=== PATIENT | female | born 1935 | race Caucasian/White ===

== ENCOUNTER 2018-11-11 11:14 | Inpatient (IN) | payer MEDICARE, OTHER ==
[~2018-11-11] VITALS: Ht 182.9 cm; Wt 59.1 kg
[2018-11-11] MEDS ORDERED: Estradiol1 MG PO (11:53)
[2018-11-11] MEDS ORDERED: CARV6.25 PO (11:53)
[2018-11-11] MEDS ORDERED: FURO20 PO (11:54)
[2018-11-11] MEDS ORDERED: Aspirin EC81 MG PO (11:54)
[2018-11-11 12:21] LABS: BASOPHILS ABSOLUTE AUTO 0.04 K/mm3 (0.00-0.23); BASOPHILS PERCENT AUTO 1 % (0-2); EOSINOPHILS ABSOLUTE AUTO 0.12 K/mm3 (0.00-0.68); EOSINOPHILS PERCENT AUTO 2 % (0-6); Hematocrit 41.4 % (33.0-51.0); Hemoglobin 12.9 g/dL (11.5-16.0); IMMATURE GRAN ABSOLUTE AUTO 0.03 K/mm3 (0.00-0.10); IMMATURE GRAN PERCENT AUTO 0 % (0-1); LYMPHOCYTES ABSOLUTE AUTO 2.01 K/mm3 (0.84-5.20); LYMPHOCYTES PERCENT AUTO 27 % (21-46); MONOCYTES ABSOLUTE AUTO 0.53 K/mm3 (0.16-1.47); MONOCYTES PERCENT AUTO 7 % (4-13); Mean Corpuscular HGB 33.2 pg (26.0-34.0); Mean Corpuscular HGB Conc 31.2 g/dL (31.5-36.5); Mean Corpuscular Volume 107 fL (80-100); Mean Platelet Volume 10.5 fL (9.1-12.4); NEUTROPHILS ABSOLUTE AUTO 4.73 K/mm3 (1.96-9.15); NEUTROPHILS PERCENT AUTO 64 % (41-73); Platelet Count 167 K/mm3 (150-400); RDW Coefficient Variation 13.2 % (11.7-14.2); RDW Standard Deviation 51.7 fL (35.1-46.3); Red Blood Cell Count 3.88 M/mm3 (3.80-5.20); White Blood Cell Count 7.46 K/mm3 (4.00-11.30)
[2018-11-11 12:36] LABS: International Normalized Ratio 0.96; Prothrombin Time Results 10.2 Sec (9.7-11.5)
[2018-11-11 12:46] LABS: Albumin, Blood 3.8 g/dL (3.4-5.0); Albumin/Globulin Ratio 1.1 (0.8-1.8); Bilirubin, Total 0.9 mg/dL (0.1-1.0); Bun/Creatinine Ratio 23.9 (12.0-20.0); Calcium, Blood 8.9 mg/dL (8.5-10.1); Creatinine, Blood 1.17 mg/dL (0.40-1.00); Globulin, Blood 3.4 g/dL (2.2-4.0); Potassium, Blood 4.2 mmol/L (3.5-5.5); Total Protein, Blood 7.2 g/dL (6.4-8.2); Troponin I 0.069 ng/mL (0.000-0.040)
--- NOTE | 2018-11-11 21:42 | NUR ---
REPORT RECEIVED FROM EARNESTINE MURRIETA
--- NOTE | 2018-11-12 01:16 | NUR ---
ARRIVAL TO ICU PT ARRIVED TO ICU 1 APPROX 2146. STAND AND TRANSFERED TO BED WITHOUT DIFFICULTY. PT DENIES SHORTNESS OF BREATH, CHEST PAIN/DISCOMFORT. PT STATES, "I FEEL MUCH BETTER." HEPARIN GTT, DILTIAZEM AND IV FLUIDS + ADDITIVES INFUSING. PT REMAINS IN AFIB, RATE 70'S-80'S. BP STABLE. PT AFEBRILE. O2 SAT IN 90'S ON ROOM AIR. SEE VITALS FLOWSHEET. SHE SHIFT ASSESSMENT. SINCE ARRIVAL, PT HAS CALLED APPROPRIATELY FOR NEEDS. SETUP/STANDBY ASSIST FOR ADL'S.
[2018-11-12 05:52] LABS: Alanine Aminotransfer (ALT/SGP 90 U/L (12-78); Albumin, Blood 3.4 g/dL (3.4-5.0); Albumin/Globulin Ratio 1.1 (0.8-1.8); Alk Phos 84 U/L (50-136); Anion Gap 8 mmol/L (6-16); Aspartate Aminotrans (AST/SGOT 61 U/L (12-37); Blood Urea Nitrogen 26 mg/dL (8-24); Bun/Creatinine Ratio 29.7 (12.0-20.0); CO2, Blood 23 mmol/L (21-32); Calcium, Blood 8.4 mg/dL (8.5-10.1); Chloride, Blood 110 mmol/L (98-108); Creatinine, Blood 0.87 mg/dL (0.40-1.00); Globulin, Blood 3.2 g/dL (2.2-4.0); Glomerular Filtration Rate >60 (60-); Glucose, Blood 105 mg/dL (70-99); Magnesium, Blood 2.6 mg/dL (1.6-2.4); Potassium, Blood 3.8 mmol/L (3.5-5.5); Sodium, Blood 141 mmol/L (136-145); Total Protein, Blood 6.6 g/dL (6.4-8.2); Troponin I 0.077 ng/mL (0.000-0.040)
[2018-11-12 05:55] LABS: BASOPHILS ABSOLUTE AUTO 0.05 K/mm3 (0.00-0.23); BASOPHILS PERCENT AUTO 1 % (0-2); EOSINOPHILS ABSOLUTE AUTO 0.22 K/mm3 (0.00-0.68); EOSINOPHILS PERCENT AUTO 3 % (0-6); Hematocrit 39.6 % (33.0-51.0); Hemoglobin 12.3 g/dL (11.5-16.0); IMMATURE GRAN ABSOLUTE AUTO 0.03 K/mm3 (0.00-0.10); IMMATURE GRAN PERCENT AUTO 0 % (0-1); LYMPHOCYTES PERCENT AUTO 30 % (21-46); MONOCYTES ABSOLUTE AUTO 0.39 K/mm3 (0.16-1.47); MONOCYTES PERCENT AUTO 5 % (4-13); Mean Corpuscular HGB 33.2 pg (26.0-34.0); Mean Corpuscular HGB Conc 31.1 g/dL (31.5-36.5); Mean Corpuscular Volume 107 fL (80-100); Mean Platelet Volume 11.1 fL (9.1-12.4); NEUTROPHILS PERCENT AUTO 61 % (41-73); Platelet Count 110 K/mm3 (150-400); White Blood Cell Count 7.69 K/mm3 (4.00-11.30)
--- NOTE | 2018-11-12 08:10 | NUR ---
PT. ARRIVED VIA BED FROM [facility]ART CENTER AWAKE , ALERT ORIENTED. VSS. MONITOR NSR WITH HR 80-90'S. RT. RADIAL AND RT. GROIN SITE CLEAR.
--- NOTE | 2018-11-12 09:35 | NUR ---
ASSUMED CARE ASSUMED CARE OF PT APPROX. 0700. PT A&O X4. ASSESSMENT COMPLETED. VITAL SIGNS STABLE. HEART RHYTHM A. FIB WITH HEART RATE RANGING FROM 80'S-100. PT CURRENTLY HAS CARDIZEM AND HEPARIN RUNNING. PT REPORTS SOME DISCOMFORT IN NECK FROM HOSPITAL BED BUT REPORT THIS TO BE TOLERABLE AT THIS TIME. BED IN LOW PSOITION, CALL LIGHT IN REACH AND PT DENIES ANY NEEDS AT THIS TIME.
--- NOTE | 2018-11-12 13:05 | NUR ---
Echocardiogram completed.
--- NOTE | 2018-11-12 17:53 | NUR ---
Per admit trigger, I met with Mrs. Muñoz to offer prayer and spiritual encouragement. she is very pleasant and welcoming of companionship and conversation. she appears to be mildly forgetful and tends to talk in circles--often repeating herself. she spoke at length about her fears for the world and "the End Times that are happening now." She professes a life-long shari and strong prayer life. Mrs. Muñoz was appreciaitve of being heard and affirmed. We prayed together for her procedure in the morning. She is well cared-for and supported by her , Mahesh and dtr, Aidee. Interestingly, she tells me that she is worried about her 's increasing fraility and tendancy to get "turned around" when driving. They live in [facility], which [place] from [employer]. Regardless, we had an easy rapport and she will benefit from continued spiritual support. Insurance Claims Analyst services will remain available.
--- NOTE | 2018-11-12 17:55 | NUR ---
SHIFT SUMMARY PT PLEASANT, COOPERATIVE AND USES CALL LIGHT APPROPRIATELY. PT REMAINS A&O X4. ALTHOUGH STATED BY PT, HAS A BAD MEMORY AND MAY ASK QUESTIONS ABOUT PROCEDURES AND WHAT IS GOING ON. ANSWERED QUESTIONS AND PROVIDED EDUCATION NEEDED. PT ABLE TO AMBULATE TO USE RESTROOM NEEDED AND TOLERATED WELL. HEPARIN DRIP CONTINUE TO RUN AT THIS TIME. CHANGES VARIFIED WITH SECOND RN. PT PT HEART RHTYHM REMAINS A. FIB. HEART RATE AVERAGING AROUND 100'S AT THIS TIME. HEART RATE INCREASES WITH ACTIVITY TO ABOUT 110'S. ASSOCIATE FACULTY FOLLOWING PT CASE. PLAN TO HAVE PT BE NPO AT MIDNIGHT TONIGHT 11/12/18 AND UNDERGO COLETTE, CARDIOVERSION AND ANGIO. TOMORROW 11/13/18. FAMILY AT BEDSIDE INTERMITENTLY. BED IN LOW POSITION, CALL LIGHT IN REACH AND PT DENIES ANY NEEDS AT THIS TIME. WILL CONTINUE TO MONITOR UNTIL HANDOFF TO NIGHTSHIFT RN.
--- NOTE | 2018-11-12 21:20 | NUR ---
PT ALERT, GENERALLY PLEASANT, WITH SOME FORGETFULNESS. PT HAS TRIED MULTIPLE TIMES TO USE TELEPHONE & HAS SOME DIFFICULTY REMEMBERING SEQUENCE TO DIAL OUT. TAB ALARM WAS PLACED FOR REMINDER TO CALL FOR ASSIST BEFORE GETTING OUT OF BED. HEPARIN INFUSION AT 16UNITS/KG/HR=20.2MLS/HR. NO CHANGE IN RATE PER PHARMACY CONSULT. PT IS ON ROOM AIR, NO SOB, MONITOR SHOWS AFIB W RATE 110'S & OCCAS PVC'S. BP HAS BEEN STABLE. PT EXPRESSES MILD FRUSTRATION RE FREQUENT VOIDING FROM LASIX GIVEN EARLIER. ASSISTED W LINES & CORDS WHEN UP TO VOID. CALL LIGHT REVIEWED & IN REACH.
--- NOTE | 2018-11-13 | NUR ---
PT FOUND STANDING AT FOOT OF BED, W CONFUSED EXPRESSION. HEARING NOISES FROM OTHER ROOMS (PT COUGHING) & THINKS "THERE ARE PEOPLE THROWING UP OUT THERE". EARLIER, PT WAS VERY CONCERNED THAT SHE COULD NOT FIND HER WALLET W HER INSURANCE CARDS & THAT THIS NEEDED TO BE TAKEN CARE OF PRIOR TO PROCEDURE. REDIRECTED TO BED & REORIENTED TO TIME & PLACE.
--- NOTE | 2018-11-13 04:39 | NUR ---
PT HAS SEEMED TO BE RESTING QUIETLY, HEPARIN & BANANA BAG INFUSION CONTINUES. IV PUMP ALARMING & COORDINATED AM LAB DRAW TO BE DRAWN AT THIS TIME. PT WAS AWAKENED GENTLY AND THEN STATED SHE WAS DREAMING ABOUT HER FATHER, AND SEEMED CONFUSED, ASKING "WHAT ALL THE RACKET WAS OUT IN THE YARD". AT THIS TIME, PT IS REFUSING LAB DRAW DESPITE GENTLE REMINDER ABOUT PROCEDURE SCHEDULED THIS AM THAT DR VICENTE HAD DISCUSSED W HER & HER & DAUGHTER. PT IS NOW VERY AGITATED. WILL ALLOW PT TO CALM DOWN & BEFORE READDRESSING. CONT IN AFIB W RATE IN 110'S & OCCAS PVC'S. BP HAS BEEN STABLE.
--- NOTE | 2018-11-13 06:30 | NUR ---
PT HAS BECOME PROGRESSIVELY MORE CONFUSED & PARANOID. BENZO'S NOT GIVEN EARLIER PT HAS NOT HAD OTHER INDICATORS OF ETOH WD, JUST INCREASED CONFUSION AND NOT WANTING TO POTENTIALLY INCREASE CONFUSION. HAD BEEN MONITORING PT IN ROOM, CONCERN FOR PT SAFETY FROM FALLING. PT TRIED TO GET OUT OF BED, & WITH ENCOURAGEMENT, WAS ASSISTED TO TOILET. PT WAS SLIGHTLY UNSTEADY AND DID NOT RECOGNIZE THAT SHE WAS IN HOSPITAL ROOM, & CALLED HER DAUGHTER & REQUESTED THAT SHE COME TO HOSPITAL RIGHT AWAY BECAUSE SHE NEEDED HELP. THEN PROCEDED TO PLACE ALL BELONGINGS ON BED. WHEN SECOND RN IN ROOM, PT REQUESTED THAT POLICE BE CALLED. AT THIS TIME, PT WAS MED W ATIVAN 1 MG. AM LABS HAVE NOT BEEN DRAWN, INCLUDING PTT. WILL CONT TO MONITOR
[2018-11-13 07:06] LABS: BASOPHILS ABSOLUTE AUTO 0.03 K/mm3 (0.00-0.23); BASOPHILS PERCENT AUTO 1 % (0-2); EOSINOPHILS ABSOLUTE AUTO 0.25 K/mm3 (0.00-0.68); EOSINOPHILS PERCENT AUTO 4 % (0-6); Hemoglobin 12.1 g/dL (11.5-16.0); IMMATURE GRAN ABSOLUTE AUTO 0.03 K/mm3 (0.00-0.10); IMMATURE GRAN PERCENT AUTO 1 % (0-1); LYMPHOCYTES ABSOLUTE AUTO 1.26 K/mm3 (0.84-5.20); LYMPHOCYTES PERCENT AUTO 21 % (21-46); MONOCYTES ABSOLUTE AUTO 0.38 K/mm3 (0.16-1.47); MONOCYTES PERCENT AUTO 6 % (4-13); Mean Corpuscular HGB 34.1 pg (26.0-34.0); Mean Corpuscular HGB Conc 32.7 g/dL (31.5-36.5); Mean Platelet Volume 10.6 fL (9.1-12.4); NEUTROPHILS ABSOLUTE AUTO 4.07 K/mm3 (1.96-9.15); NEUTROPHILS PERCENT AUTO 68 % (41-73); Platelet Count 129 K/mm3 (150-400); RDW Coefficient Variation 12.6 % (11.7-14.2); Red Blood Cell Count 3.55 M/mm3 (3.80-5.20); White Blood Cell Count 6.02 K/mm3 (4.00-11.30)
[2018-11-13 07:10] LABS: Mean Corpuscular Volume 104 fL (80-100)
[2018-11-13 07:21] LABS: Anion Gap 7 mmol/L (6-16); Blood Urea Nitrogen 14 mg/dL (8-24); Bun/Creatinine Ratio 16.1 (12.0-20.0); CO2, Blood 25 mmol/L (21-32); Calcium, Blood 8.1 mg/dL (8.5-10.1); Chloride, Blood 108 mmol/L (98-108); Creatinine, Blood 0.87 mg/dL (0.40-1.00); Glomerular Filtration Rate >60 (60-); Glucose, Blood 139 mg/dL (70-99); Potassium, Blood 3.2 mmol/L (3.5-5.5); Sodium, Blood 140 mmol/L (136-145)
--- NOTE | 2018-11-13 07:30 | NUR ---
ASSUMED CARE OF PATIENT; SEE ASSESSMENT CHARTING FOR DETAILS. PATIENT SLEEPING WITH MOUTH WIDE OPENED AND SNORING; BIOX. STAYING MID TO HIGH 90'S ON ROOM AIR. HR 90'S TO 120/MIN; REMAINS AFIB. RECEIVED 1MG IV ATIVAN TO HELP CONTROL ? ETOH WITHDRAWAL OR SUNDOWNERS ETC. CALMED RIGHT DOWN AND IS NOW SLEEPING. HEPARIN DRIP AT 16U/HR AND BANANA BAG INFUSING AT 75ML/HR; PIV'S INTACT. WAS TO GO TO HEART CENTER FOR ANGIOGRAM BUT D./T ALTERED BEHAVIOR ETC PROCEDURE TO BE POSTPONED. PATIENT NO LONGER NPO BUT TOO SLEEPY TO EAT, ETC.
--- NOTE | 2018-11-13 10:00 | NUR ---
ORAL MEDS. HELD; DR. AZAR INFORMED AND IVF, ETC DISCUSSED; SEE NEW ORDERS. IV MEDS AND NITROPASTE GIVEN PER ROUTINE BUT PATIENT REMAINS VERY SOMNOLENT; VSS. FAMILY (SPOUSE AND DAUGHTER) IN/OUT VERY SUPPORTIVE AND CONCERNED.
--- NOTE | 2018-11-13 15:30 | NUR ---
PATIENT MUCH MORE ALERT AND MOSTLY ORIENTED AND APPROPRIATE. HAS BEEN UP/DOWN TO BSC MULTIPLE TIMES D/T DIURETIC TX; VOIDS ABOUT 400ML/PER VOID. DRIFTED BACK TO SLEEP AFTER PREVIOUS VOIDS BUT STAYING AWAKE AND ASKING QUESTIONS THIS LATE AFTERNOON. VERY PLEASANT AND OVERALL COOPERATIVE.
--- NOTE | 2018-11-13 16:00 | NUR ---
BANANA BAG STARTED; INFUSING AT 100ML/HR.
--- NOTE | 2018-11-13 18:00 | NUR ---
SUMMARY: OVERALL IMPROVED; DIURESED ABOUT 3100+/ML OF URINE AND TO RECEIVE ANOTHER DOSE OF LASIX (DUE NOW BUT WILL HAVE NOC NURSE GIVE D/T PATIENT AND SPOUSE EATING DINNER AND LASIX WORKS VERY QUICKLY AND FOR 4+ VOIDS EVERY 30/MIN OR SO). ORIENTED TO PLACE THIS EVENING AND SITUATION; APPETITE GOOD AND FEEDING SELF. MONITOR REMAINS ATRIAL FIB WITH RVR; CURRENTLY, DRIP AT 10MG/HR, WITH RATE LOW 100'S. HEPARIN DRIP AT 16U/KG/HR; PTT DRAWN AT 1400 WAS LOW 60'S; NO MORE PTT'S TIL AM. WILL REPORT TO ONCOMING RN.
--- NOTE | 2018-11-13 22:39 | NUR ---
ASSUMED CARE OF PT @1915 PT IS PLEASANT ALERT AND ORIENTED, PT'S AT BEDSIDE. CARDIZEM GTT AT 10 MG/HR AND HEPARIN 16 UNITS/KG/HR. PT ABLE TO APPROPRIATELY ANSWER QUESTIONS REGARDING SELF/SITUATION/PLACE/TIME. PT STATES THAT SHE HAS HEARD SHE WAS "CRAZY" LAST NIGHT BUT STATES THAT "SHE WAS DREAMING THAT SHE WAS RUNNING THROUGH [employer]". PER DAYSHIFT NURSE PT HAS TOLERATING EATING AND DRINKING ALL DAY AND HAS HAD GOOD URINARY OUTPUT. PT IS STANDBY ASSIST TO BEDSIDE COMMODE, TAB ALARM IN PLACE PT FORGETS THAT SHE NEEDS ASSISTANCE. VSS. SEE FULL SHIFT ASSESSMENT.
--- NOTE | 2018-11-14 00:02 | NUR ---
PT EXHIBITING PARANOIA INSISTING THAT THERE ARE PEOPLE "SHOOTING OUTSIDE". I WENT THROUGH VARIOUS POSSIBILITIES OF WHAT THE SOUND COULD BE AND PT RESPONDED THAT WE (THE NURSES) WERE ALL "NERDS" AND THAT WE ARE GOING TO END UP SHOT. PT STATED THAT WE "ARE GOING TO ASSUME THAT SHE IS CRAZY LIKE LAST NIGHT", I REASSURED THE PT THAT SHE IS SAFE AND IN A LOCKED UNIT AND THAT I DIDN'T HEAR ANY GUNFIRE. I ASKED PT IF SHE WOULD LIKE SOME ATIVAN TO EASE HER ANXIETY AND WORRY AND PT STATED SHE WOULD. PT MEDICATED WITH 1 MG ATIVAN PER ORDER.
[2018-11-14 03:32] LABS: BASOPHILS ABSOLUTE AUTO 0.05 K/mm3 (0.00-0.23); BASOPHILS PERCENT AUTO 1 % (0-2); EOSINOPHILS PERCENT AUTO 5 % (0-6); Hematocrit 34.3 % (33.0-51.0); IMMATURE GRAN ABSOLUTE AUTO 0.03 K/mm3 (0.00-0.10); IMMATURE GRAN PERCENT AUTO 1 % (0-1); LYMPHOCYTES ABSOLUTE AUTO 1.64 K/mm3 (0.84-5.20); LYMPHOCYTES PERCENT AUTO 25 % (21-46); MONOCYTES ABSOLUTE AUTO 0.48 K/mm3 (0.16-1.47); MONOCYTES PERCENT AUTO 7 % (4-13); Mean Corpuscular HGB 34.3 pg (26.0-34.0); Mean Corpuscular HGB Conc 32.1 g/dL (31.5-36.5); Mean Platelet Volume 10.7 fL (9.1-12.4); NEUTROPHILS PERCENT AUTO 62 % (41-73); Platelet Count 131 K/mm3 (150-400); RDW Coefficient Variation 12.8 % (11.7-14.2); RDW Standard Deviation 50.3 fL (35.1-46.3); Red Blood Cell Count 3.21 M/mm3 (3.80-5.20)
[2018-11-14 03:36] LABS: Mean Corpuscular Volume 107 fL (80-100)
[2018-11-14 03:46] LABS: Bun/Creatinine Ratio 16.2 (12.0-20.0); Calcium, Blood 7.9 mg/dL (8.5-10.1); Creatinine, Blood 1.05 mg/dL (0.40-1.00); Potassium, Blood 3.5 mmol/L (3.5-5.5)
--- NOTE | 2018-11-14 05:59 | NUR ---
SHIFT SUMMARY PT ALERT AND MOSTLY ORIENTED. PT EXPERIENCED INCREASING PARANOIA, AUDITORY HALLUCINATIONS AND CONFUSION BEGINNING AT 2300 AND LASTING UNTIL MEDICATED WITH ATIVAN (SEE PREVIOUS NOTE). PT SLEPT THROUGHOUT THE NIGHT BUT WAS AROUSABLE AND ABLE TO APPROPRIATELY ANSWER QUESTION. PT CONTINUES TO BE CONFUSED AND IS INSISTING THAT SHE "GOT A NEW BED" LAST NIGHT BECAUSE THIS ONE IS "MUCH MORE COMFORTABLE". PT'S VITAL SIGNS STABLE OVERNIGHT WITH PERIODS OF HYPOTENSION, SBP IN THE 80'S WITH MAP OF 50-60. CARDIZEM @ 5 MG/HR IN LAC. PT'S HR MOSTLY IN THE HIGH 70'S TO LOW 80'S. HEPARIN REMAINS @ 16 UNITS/KG/HR. PT CONTINENT OF URINE AND CONTINUES TO BE STANDBY ASSIST TO BEDSIDE COMMODE. 300 ML URINARY OUTPUT THIS SHIFT. WILL REPORT TO DAYSHIFT NURSE.
--- NOTE | 2018-11-14 07:30 | NUR ---
ASSUMED CARE OF PATIENT; SEE ASSESSMENT CHARTING FOR DETAILS. PATIENT AWAKE AND ALERT; ORIENTED TO PERSON, PLACE AND TIME. UP TO BSC WITH SBA AND TOLERATING WELL; ABLE TO USE CALL LIGHT APPROPRIATELY. MONITOR REMAINS ATRIAL FIB WITH RATE 80'S TO 120'S; SBP 90'S. DENIES PAIN OR GI UPSET; APPETITE LIMITED BUT EATING AND DRINKING WITH ENCOURAGEMENT. LUNGS CLEAR; DIMINISHED IN BASES; REMAIN WITH BIOX 97-100% ON ROOM AIR. DR. GOODEN IN TO EVAL. PATIENT; PLEASED PATIENTS' MENTAL STATUS IMPROVED AND BASICALLY AT BASELINE. WILL SCHEDULE PATIENT FOR COLETTE/CARDIOVERSION AND ANGIOGRAM (WANTS ANESTHESIA FOR PROCEDURES). NOTE: AROND 2400 PATIENT BECAME INCREASINGLY CONFUSED AND PARANOID (SEE NOTES FROM NIGHTSHIFT RN); ? IF PATIENT HAS SUNDOWNERS'; HAD RECEIVED 1MG ATIVAN, THEN SLEPT AND AT 0500 WOKE UP AND WAS ORIENTED.
[2018-11-14 09:23] LABS: Alanine Aminotransfer (ALT/SGP 56 U/L (12-78); Aspartate Aminotrans (AST/SGOT 18 U/L (12-37)
--- NOTE | 2018-11-14 10:00 | NUR ---
T/C FROM [facility] IN [facility]ENTER; PATIENT SCHEDULED FOR 1300 FOR PROCEDURES.
--- NOTE | 2018-11-14 10:45 | NUR ---
DR. AZAR CAME BY AND EVAL. PATIENT; DAUGHTER, FRIEND AND SPOUSE AT BEDSIDE. SEE PHYSICIANS ORDERS AND PROGRESS NOTE.
--- NOTE | 2018-11-14 13:06 | NUR ---
TO HEART CENTER VIA BED; HEART MONITOR ATTACHED. PATIENTS' HEPARIN DRIP TURNED OFF AT THIS TIME, PER REQUEST OF HEART CENTER STAFF. CARDIZEM DRIP REMAINS AT 5MG/HR AND KCL INFUSION CONTINUES. CHART WITH PATIENT.
--- NOTE | 2018-11-14 15:45 | NUR ---
ARRIVED BACK TO ICU 1 VIA BED FROM [facility]. PATIENT SLEEPY BUT ROUSES TO VERBAL STIMULI. CONNECTED UP TO MONITORS AND OXYGEN AT 2L/MIN VIA NC (BIOX DROPPING WHEN PATIENT SNORES WITH MOUTH OPENED). R WRIST WITH TR BAND CUFF IN PLACE; SITE INTACT; NO BLEEDING NOTED; 9CC OF AIR WAS PLACED IN CUFF; ARMBOARD SECURED TO PREVENT USE OF R WRIST. R GROIN SITE WITH R FEMORAL VENOUS SITE; DRESSING INTACT AND NO S/SX'S OF BLEEDING, BRUISING OR HEMATOMA. GOOD PULSES TO ALL 4 EXTREMITIES. MONITOR NSR; CARDIOVERSION DONE IN HEART CENTER AFTER T.E.E.; SEE PROCEDURAL NOTES ETC. ANGIOGRAM THEN DONE USING R TR BAND AND USED R FEMORAL/VENOUS SITE: SEE [facility] NOTES. DAUGHTER AND SPOUSE HERE; DID NOT GET A CHANCE TO SPEAK WITH PHYSICIAN; DR. CAT T/C TO RN PRIOR TO PATIENT RETURNING FROM [facility] WITH OVERVIEW OF PROCEDURE/OUTCOME/POC, ETC. RN UPDATED FAMILY AND PATIENT WITH THIS INFORMATION.
--- NOTE | 2018-11-14 16:00 | NUR ---
R GROIN SITE D/I; UNCHANGED. R TR BAND SITE UNCHANGED.
--- NOTE | 2018-11-14 16:15 | NUR ---
R GROIN SITE D/I AND R TR BAND SITE INTACT; VSS AND PATIENT REMAINS IN NSR.
--- NOTE | 2018-11-14 16:30 | NUR ---
TR BAND (R WRIST) REMAINS D/I WELL VENOUS FEMORAL SITE. PATIENT SLEEPING WHEN NOT DISTURBED BUT ORIENTED; SOMETIMES WAKES UP AND THINKS SHE IS HOME BUT REORIENTS EASILY.
--- NOTE | 2018-11-14 17:00 | NUR ---
TR. BAND SITE INTACT; R FEMORAL GROIN SITE INTACT (VENOUS); RN ALLOWING PATIENT TO HAVE HOB UP TO 30 DEGREES FOR DINNER. RN FEEDING PATIENT; APPETITE FAIR BUT STATES HER STOMACH FELT BETTER AFTER EATING.
--- NOTE | 2018-11-14 17:30 | NUR ---
VSS AND PATIENT REMAINS IN NSR. SLEEPS WHEN NOT DISTURBED AND WATCHING NURY BASKETBALL INTERMITTENTLY BETWEEN DOZING. TR BAND SITE AND R FEMORAL SITE REMAIN UNCHANGED/STABLE.
--- NOTE | 2018-11-14 18:00 | NUR ---
SUMMARY: 1CC OF AIR REMOVED FROM TR BAND CUFF; NO BLEEDING NOTED. FRIENDS IN TO VISIT WITH PATIENT FOR ABOUT 20/MIN. HEPARIN GTT INFUSING AT 16U/KG/HR; NO LONGER REQUIRING CARDIZEM GTT. MONITOR REMAINS NSR; VSS. PATIENT MOSTLY ORIENTED; A LITTLE CONFUSED BUT REORIENTS. WILL REPORT TO ONCOMING RN.
--- NOTE | 2018-11-14 18:15 | NUR ---
1CC AIR REMOVED FROM TR BAND CUFF; NO BLEEDING.
--- NOTE | 2018-11-14 18:45 | NUR ---
2CC OF AIR REMOVED FROM CUFF; 5CC REMAIN.
--- NOTE | 2018-11-14 19:30 | NUR ---
ASSUMED CARE BEDSIDE REPORT RECIEVED. PT IS AWAKE, ALERT, ORIENTED, AND SITTING UP IN BED. PT IS TALKATIVE AND FOLLOWING COMMANDS APPROPRIATELY. PT IS FORGETFUL AND CONFUSED AT TIMES. PT PLEASANT. VITAL SIGNS STABLE, PT ON 2L O2 NC. PT WITH HEPARIN GTT INFUSING AT 16 UNITS/KG/HR PER PHARMACY. PT WITH TR BAND TO RIGHT RADIAL ACCESS SITE AND ARM BOARD IN PLACE. SITE IS SOFT, NON TENDER, NO HEMATOMA PRESENT. WILL CONTINUE TO RELEASE AIR. PT WITH RIGHT FEMORAL VENOUS ACCESS SITE WITH TEGADERM DRESSING IN PLACE. SITE IS SOFT WITH NO HEMATOMA PRESENT. PT DENIES PAIN OR DISCOMFORT. WILL CONTINUE TO MONITOR.
[2018-11-15 04:16] LABS: BASOPHILS ABSOLUTE AUTO 0.02 K/mm3 (0.00-0.23); BASOPHILS PERCENT AUTO 0 % (0-2); EOSINOPHILS ABSOLUTE AUTO 0.03 K/mm3 (0.00-0.68); EOSINOPHILS PERCENT AUTO 0 % (0-6); Hemoglobin 11.6 g/dL (11.5-16.0); IMMATURE GRAN ABSOLUTE AUTO 0.06 K/mm3 (0.00-0.10); IMMATURE GRAN PERCENT AUTO 1 % (0-1); LYMPHOCYTES ABSOLUTE AUTO 1.15 K/mm3 (0.84-5.20); LYMPHOCYTES PERCENT AUTO 13 % (21-46); MONOCYTES ABSOLUTE AUTO 0.56 K/mm3 (0.16-1.47); MONOCYTES PERCENT AUTO 6 % (4-13); Mean Corpuscular HGB 34.3 pg (26.0-34.0); Mean Corpuscular HGB Conc 32.2 g/dL (31.5-36.5); Mean Corpuscular Volume 107 fL (80-100); Mean Platelet Volume 10.5 fL (9.1-12.4); NEUTROPHILS ABSOLUTE AUTO 7.17 K/mm3 (1.96-9.15); NEUTROPHILS PERCENT AUTO 80 % (41-73); Platelet Count 152 K/mm3 (150-400); RDW Coefficient Variation 12.9 % (11.7-14.2); RDW Standard Deviation 50.3 fL (35.1-46.3); Red Blood Cell Count 3.38 M/mm3 (3.80-5.20); White Blood Cell Count 8.99 K/mm3 (4.00-11.30)
[2018-11-15 04:17] LABS: BASOPHILS ABSOLUTE AUTO 0.02 K/mm3 (0.00-0.23); BASOPHILS PERCENT AUTO 0 % (0-2); EOSINOPHILS ABSOLUTE AUTO 0.04 K/mm3 (0.00-0.68); EOSINOPHILS PERCENT AUTO 0 % (0-6); Hematocrit 35.5 % (33.0-51.0); Hemoglobin 11.5 g/dL (11.5-16.0); IMMATURE GRAN ABSOLUTE AUTO 0.05 K/mm3 (0.00-0.10); IMMATURE GRAN PERCENT AUTO 1 % (0-1); LYMPHOCYTES ABSOLUTE AUTO 1.12 K/mm3 (0.84-5.20); LYMPHOCYTES PERCENT AUTO 13 % (21-46); MONOCYTES ABSOLUTE AUTO 0.54 K/mm3 (0.16-1.47); MONOCYTES PERCENT AUTO 6 % (4-13); Mean Corpuscular HGB 33.8 pg (26.0-34.0); Mean Corpuscular HGB Conc 32.4 g/dL (31.5-36.5); Mean Corpuscular Volume 104 fL (80-100); Mean Platelet Volume 10.4 fL (9.1-12.4); NEUTROPHILS ABSOLUTE AUTO 7.18 K/mm3 (1.96-9.15); NEUTROPHILS PERCENT AUTO 80 % (41-73); Platelet Count 151 K/mm3 (150-400); RDW Coefficient Variation 12.9 % (11.7-14.2); RDW Standard Deviation 48.9 fL (35.1-46.3); White Blood Cell Count 8.95 K/mm3 (4.00-11.30)
[2018-11-15 04:37] LABS: Alanine Aminotransfer (ALT/SGP 41 U/L (12-78); Anion Gap 5 mmol/L (6-16); Aspartate Aminotrans (AST/SGOT 13 U/L (12-37); Blood Urea Nitrogen 14 mg/dL (8-24); Bun/Creatinine Ratio 14.5 (12.0-20.0); CO2, Blood 24 mmol/L (21-32); Calcium, Blood 8.4 mg/dL (8.5-10.1); Chloride, Blood 114 mmol/L (98-108); Cholesterol 198 mg/dL (50-200); Creatinine, Blood 0.97 mg/dL (0.40-1.00); Glomerular Filtration Rate 58 (60-); Glucose, Blood 113 mg/dL (70-99); HDL Cholesterol 67 mg/dL (>39); LDL/HDL RATIO 1.6; Low Density Lipoprotein Chol 110 mg/dL (0-110); Potassium, Blood 4.6 mmol/L (3.5-5.5); Sodium, Blood 143 mmol/L (136-145); Triglycerides 103 mg/dL (30-160); Very Low Density Lipoprot Chol 20 mg/dL (6-32)
--- NOTE | 2018-11-15 06:12 | NUR ---
SHIFT SUMMARY NO ACUTE CHANGES THIS SHIFT. PT HAS SLEPT OFF AND ON THROUGHOUT THE NIGHT. PT IS ALERT AND ORIENTED WHEN AWAKE WITH PERIODS OF CONFUSION. PT FOLLOWS COMMANDS APPROPRIATELY. VITAL SIGNS HAVE REMAINED STABLE WITH PT REMAINING IN SINUS RHYTHM. PT ON 2L O2 NC WHILE SLEEPING. PT WITH HEPARIN GTT INFUSING AT 16 UNITS/KG/HR. PT TAKING PO FLUIDS WELL. PT UP TO TOILET TO VOID WELL WITH SBA. RIGHT RADIAL SITE C/D/I WITH TEGADERM AND ARM BOARD IN PLACE. RIGHT FEMORAL ACCESS SITE C/D/I WITH TEGADERM IN PLACE. PT HAS DENIED PAIN OR DISCOMFORT. WILL CONTINUE TO MONITOR AND REPORT OFF TO ONCOMING RN.
--- NOTE | 2018-11-15 09:15 | NUR ---
PATIENT RESTING IN BED QUIETLY UPON ENTERING ROOM. PATIENT ALERT AND ORIENTED EXCEPT TO TIME/ DATE. FORGETFUL AT TIMES. WEAK- SBA. PATIENT DENIES PAIN. PATIENT HAS TEMP OF 100.0 DEGREES FAHRENHEIT. CRACKLES NOTED T/O. PATIENT ON 2 L NC. PATIENT HAS MOIST, NONPRODUCTIVE COUGH. PATIENT IN ST, HR IN THE 120S. BP STABLE. GI WNL. WNL. R GROIN AND R RADIAL SITES WNL- NO BLEEDING, BRUISING, HEMATOMA NOTED. HEPARIN INFUSING AT 17 MCG/ KG/ HOUR AND AMIODARONE INFUSING AT 1 MG/ MINUTE. BED LOW, CALL LIGHT IN REACH. WILL CONTINUE TO MONITOR PATIENT FREQUENTLY THROUGHTOUT SHIFT.
--- NOTE | 2018-11-15 11:12 | NUR ---
PATIENT SPEAKING WITH VISITORS. PATIENT HAS NO COMPLAINTS AT THIS TIME. PATIENT HAS TEMP OF 100.5 DEGREES FAHRENHEIT. FAN PLACED ON PATIENT. PATIENT IN ST, HR 1-TEENS TO 120S. BP STABLE. NO OTHER ACUTE CHANGES TO NOTE ON AT THIS TIME. WILL CONTINUE TO MONITOR.
--- NOTE | 2018-11-15 17:19 | NUR ---
PATIENT VISITING WITH . PATIENT SAT UP FOR DINNER. NO COMPLAINTS. AFEBRILE. VSS. ON 2L NC. HEPARIN DC'D EARLIER AFTER SEVERAL PHONE CALLS AND TAKING WITH DR. VICENTE TO CLARIFY ORDERS. AMIODARONE REMAINS INFUSING AT 1 MG/ MINUTE. NO OTHER ACUTE CHANGES TO NOTE ON AT THIS TIME. WILL CONTINUE TO MONITOR.
--- NOTE | 2018-11-15 17:59 | NUR ---
SHIFT SUMMARY PATIENT REMAINED ALERT AND ORIENTED TO SELF, FAMILY, TOWN, THAT SHE IS IN THE HOSPITAL. PATIENT FORGETFUL AT TIMES. PATIENT DID NOT HAVE ANY COMPLAINTS OF PAIN DURING SHIFT. PATIENT AFEBRILE AT THIS TIME BUT HIT A TMAX OF 100.5 DEGREES FAHRENHEIT. PATIENT TITRATED DOWN TO 2 L NC AND CONTINUES TO SAT 90% AND GREATER. PATIENT HAS BEEN IN ST, LOW 100S TO 120S. BP HAS BEEN STABLE. GI WNL. WNL. R GROIN AND R RADIAL CATH ACCESS SITES REMAIN WNL- NO BLEEDING, BRUISING, OR HEMATOMA NOTED. HEPARIN DRIP STOPPED THIS SHIFT. AMIO STARTED THIS AM AND CONTINUES AT 0.5 MG/ MINUTE. AT BEDSIDE. NO CURRENT COMPLAINTS. BED LOW, CALL LIGHT IN REACH. WILL CONTINUE TO MONITOR PATIENT FREQUENTLY THROUGHOUT SHIFT.
--- NOTE | 2018-11-15 21:48 | NUR ---
DR. VICENTE: CALL FROM DR. VICENTE. ORDERS CONFIRMED AND VERIFIED. AMIODARONE PO TO BE 400mg BID FOR THREE DAYS THEN 200 mg "DAILY" NOT BID. CALL TO PHARMACY TO VERIFY THAT PT DID, IN FACT, RECEIVE XARELTO PO AFTER HEPARIN GTT WAS STOPPED. PHARMACY DID VERIFY THAT PT WAS GIVEN XARELTO 15mg THIA AM AT 0845. DR. VICENTE STATED WANTED PT TO RECIEVE XARELTO 20mg. PHARMACY STATED THAT THIS AM XARELTO WAS ADJUSTED PER PT'S RENAL FUNCTION.
--- NOTE | 2018-11-15 23:50 | NUR ---
PT AWAKE. PERFORMING OWN ORAL CARE AND FACE WASHING.
[2018-11-16 03:31] LABS: BASOPHILS ABSOLUTE AUTO 0.04 K/mm3 (0.00-0.23); BASOPHILS PERCENT AUTO 1 % (0-2); EOSINOPHILS ABSOLUTE AUTO 0.28 K/mm3 (0.00-0.68); EOSINOPHILS PERCENT AUTO 3 % (0-6); Hematocrit 35.3 % (33.0-51.0); Hemoglobin 11.3 g/dL (11.5-16.0); IMMATURE GRAN ABSOLUTE AUTO 0.06 K/mm3 (0.00-0.10); IMMATURE GRAN PERCENT AUTO 1 % (0-1); LYMPHOCYTES ABSOLUTE AUTO 1.32 K/mm3 (0.84-5.20); LYMPHOCYTES PERCENT AUTO 15 % (21-46); MONOCYTES ABSOLUTE AUTO 0.49 K/mm3 (0.16-1.47); MONOCYTES PERCENT AUTO 6 % (4-13); Mean Corpuscular HGB 33.9 pg (26.0-34.0); Mean Corpuscular Volume 106 fL (80-100); Mean Platelet Volume 10.5 fL (9.1-12.4); NEUTROPHILS PERCENT AUTO 75 % (41-73); Platelet Count 134 K/mm3 (150-400); RDW Coefficient Variation 13.1 % (11.7-14.2); RDW Standard Deviation 50.9 fL (35.1-46.3); Red Blood Cell Count 3.33 M/mm3 (3.80-5.20); White Blood Cell Count 8.79 K/mm3 (4.00-11.30)
[2018-11-16 03:48] LABS: Alanine Aminotransfer (ALT/SGP 35 U/L (12-78); Albumin, Blood 2.8 g/dL (3.4-5.0); Albumin/Globulin Ratio 0.9 (0.8-1.8); Alk Phos 75 U/L (50-136); Anion Gap 5 mmol/L (6-16); Aspartate Aminotrans (AST/SGOT 17 U/L (12-37); Bilirubin, Total 1.6 mg/dL (0.1-1.0); Blood Urea Nitrogen 14 mg/dL (8-24); Bun/Creatinine Ratio 14.8 (12.0-20.0); CO2, Blood 26 mmol/L (21-32); Calcium, Blood 8.2 mg/dL (8.5-10.1); Chloride, Blood 107 mmol/L (98-108); Creatinine, Blood 0.94 mg/dL (0.40-1.00); Globulin, Blood 3.2 g/dL (2.2-4.0); Glomerular Filtration Rate >60 (60-); Glucose, Blood 126 mg/dL (70-99); Potassium, Blood 3.9 mmol/L (3.5-5.5); Sodium, Blood 138 mmol/L (136-145)
--- NOTE | 2018-11-16 06:03 | NUR ---
SHIFT SUMMARY: PT A+O, PLEASANT AND APPROPRIATE T/O NOC. VSS. R RADIAL SITE REMAINED STABLE AND WITHOUT CHANGE SINCE INITIAL ASSESSMENT. PT UP IN ROOM TO USE TOILET T/O NOC WITHOUT DIFFICULTY. PT VERBALIZES CONCERN FOR GETTING HOME AND MAKING SHE AND HER HUSBANDS LIFE EASIER TO MANAGE (SELLING ANIMALS A SIZING DOWN). THIS AM'S EKG SHOWED NSR WITH NON-SPECIFIC T WAVE ABNORMALY. PT WITH NO COMPLAINTS T/O NOC.
--- NOTE | 2018-11-16 09:45 | NUR ---
INITIAL ASSESSMENT PATIENT IS RESTING COMFORTABLY IN BED WITH FAMILY AT BEDSIDE. PATIENT HAS TEMPERATURE OF 99.2. NO COMPLAINTS AT THIS TIME. BED LOW AND CALL LIGHT WITHIN REACH. WILL CONTINUE TO MONITOR.
--- NOTE | 2018-11-16 11:39 | NUR ---
PATIENT IS RESTING QUIETLY IN BED. NO COMPLAINTS AT THIS TIME. AFEBRILE. AT BEDSIDE. OXYGEN TITRATED TO RA. PATIENT IS TOLERATING THIS WELL WITH SATS 90% AND GREATER. HR IN THE 80S. BP STABLE. BED LOW. CALL LIGHT WITHIN REACH. WILL CONTINUE TO MONITOR.
[2018-11-16 12:13] LABS: Bun/Creatinine Ratio 15.4 (12.0-20.0); Calcium, Blood 8.5 mg/dL (8.5-10.1); Creatinine, Blood 0.97 mg/dL (0.40-1.00); Potassium, Blood 4.2 mmol/L (3.5-5.5)
--- NOTE | 2018-11-16 16:18 | NUR ---
PATIENT RESTING COMFORTABLY IN BED. AFEBRILE. PATIENT SATTING 90% OR GREATER ON RA. HR IS IN THE 90S AND IS NSR. BP IS STABLE. NO COMPLAINTS AT THIS TIME. BED LOW. CALL LIGHT WITHIN REACH. WILL CONTINUE TO MONITOR.
--- NOTE | 2018-11-16 18:36 | NUR ---
SHIFT SUMMARY PATIENT REMAINED ALERT AND ORIENTED THROUGHOUT SHIFT. AFEBRILE. PATIENT REMAINS WEAK BUT IS GETTING STRONGER. REQUIRES STANDBY ASSIST TO THE TOILET. PATIENT WAS TITRATED FROM 3 L N THIS AM TO RA THIS SHIFT. CONTINUES TO SAT AT OR ABOVE 90% ON RA. NSR. HR RANGED FROM 80S TO 90S. BP IS STABLE. GI/ IS WNL. PATIENT EATING WELL. PATIENT IS VOIDING WELL. NO BM THIS SHIFT. CATH SITES IN THE R WRIST AND R GROIN REMAIN STABLE. NO BLEEDING, BRUISING, OR HEMATOMA NOTED. 22G IV IN THE R HAND WAS REMOVED THIS SHIFT. 18G IN THE R AC IS SALINE LOCKED. PATIENT RECEIVED BED BATH THIS SHIFT. PATIENT IS RESTING IN BED WITH AT THE BEDSIDE. NO COMPLAINTS AT THIS TIME. BED LOW CALL LIGHT WITHIN REACH. WILL CONTINUE TO MONITOR.
--- NOTE | 2018-11-17 02:47 | NUR ---
PT RESTING QUIETLY T/O NOC STATING, "I FEEL SO MUCH BETTER". PT STATED IS SLEEPING WELL AND APPRECIATE IF BLOOD DRAWS COULD WAIT UNTIL SHE IS AWAKE. VSS. CALL LIGHT WITHIN REACH.
[2018-11-17 03:37] LABS: BASOPHILS ABSOLUTE AUTO 0.04 K/mm3 (0.00-0.23); BASOPHILS PERCENT AUTO 0 % (0-2); EOSINOPHILS ABSOLUTE AUTO 0.35 K/mm3 (0.00-0.68); EOSINOPHILS PERCENT AUTO 4 % (0-6); Hematocrit 35.9 % (33.0-51.0); Hemoglobin 11.6 g/dL (11.5-16.0); IMMATURE GRAN ABSOLUTE AUTO 0.04 K/mm3 (0.00-0.10); IMMATURE GRAN PERCENT AUTO 0 % (0-1); LYMPHOCYTES ABSOLUTE AUTO 1.01 K/mm3 (0.84-5.20); LYMPHOCYTES PERCENT AUTO 11 % (21-46); MONOCYTES ABSOLUTE AUTO 0.63 K/mm3 (0.16-1.47); MONOCYTES PERCENT AUTO 7 % (4-13); Mean Corpuscular HGB 33.3 pg (26.0-34.0); Mean Corpuscular HGB Conc 32.3 g/dL (31.5-36.5); NEUTROPHILS ABSOLUTE AUTO 7.18 K/mm3 (1.96-9.15); NEUTROPHILS PERCENT AUTO 78 % (41-73); Platelet Count 143 K/mm3 (150-400); RDW Coefficient Variation 12.7 % (11.7-14.2); RDW Standard Deviation 47.8 fL (35.1-46.3); Red Blood Cell Count 3.48 M/mm3 (3.80-5.20); White Blood Cell Count 9.25 K/mm3 (4.00-11.30)
[2018-11-17 03:38] LABS: Mean Corpuscular Volume 103 fL (80-100)
[2018-11-17 03:54] LABS: Bun/Creatinine Ratio 16.3 (12.0-20.0); Calcium, Blood 8.7 mg/dL (8.5-10.1); Creatinine, Blood 0.98 mg/dL (0.40-1.00); Potassium, Blood 4.2 mmol/L (3.5-5.5)
--- NOTE | 2018-11-17 09:47 | NUR ---
PT HAS BEEN AWAKE AND ALERT THIS AM BUT SOMEWHAT FORGETFUL AT TIMES BUT VERY PLEASANT. PT DENIES PAIN OR DISTRESS. VSS. SL. TAKING PO WELL.
[2018-11-17] MEDS ORDERED: ACET325 PO (10:23)
[2018-11-17] MEDS ORDERED: Pacerone100 MG PO (10:24)
[2018-11-17] MEDS ORDERED: BISA10S PR (10:25)
[2018-11-17] MEDS ORDERED: FAMO20 PO (10:26)
[2018-11-17] MEDS ORDERED: DOCU100 PO (10:26)
[2018-11-17] MEDS ORDERED: NITR.4SL SL (10:28)
[2018-11-17] MEDS ORDERED: XARELTO20 MG PO (10:29)
[2018-11-17] MEDS ORDERED: ONDA4 PO (10:30)
[2018-11-17] MEDS ORDERED: K-Dur20 MEQ PO (10:31)
--- NOTE | 2018-11-17 11:16 | NUR ---
PT D/C INSTRUCTIONS GIVEN. NO CARIOLOGY DR BUT DR AZAR INDICATED THAT DR CYR MADE INSTRUCTIONS WITH [facility]. PT IV SITE INTACT AND D/C. MEDS CALLED IN AND ALSO GIVEN INSTRUCTIONS SOME FORGETFULNESS IS NOTED EVEN PER PT. W/C TO [facility] PER SVETLANA AT 1110.
== END 2018-11-17 11:10 | disposition home or self-care (01) | DRG 287 ==
LOC: ER 11:14 → ICUE 16:55 → ERHOLD 16:55 → ICUE 21:47
PROVIDERS: Internal Medicine Cardiovascular Disease; Physician Assistant; ADMIT Family Medicine
PROC: B24BZZ4 Ultrasonography of Heart with Aorta, Transesophageal (ICD-10-PCS; principal; 2018-11-14)
PROC: 5A2204Z Restoration of Cardiac Rhythm, Single (ICD-10-PCS; 2018-11-14)
PROC: B2111ZZ Fluoroscopy of Multiple Coronary Arteries using Low Osmolar Contrast (ICD-10-PCS; 2018-11-14)
PROC: 4A023N8 Measurement of Cardiac Sampling and Pressure, Bilateral, Percutaneous Approach (ICD-10-PCS; 2018-11-14)
DX: I48.0 Paroxysmal atrial fibrillation (principal); F10.239 Alcohol dependence with withdrawal, unspecified; F05 Delirium due to known physiological condition; Z79.82 Long term (current) use of aspirin; N18.3 Chronic kidney disease, stage 3 (moderate); J30.2 Other seasonal allergic rhinitis; I27.20 Pulmonary hypertension, unspecified; I08.3 Combined rheumatic disorders of mitral, aortic and tricuspid valves; I12.9 Hypertensive chronic kidney disease with stage 1 through stage 4 chronic kidney disease, or unspecified chronic kidney disease; I50.9 Heart failure, unspecified; E87.6 Hypokalemia
CPT/HCPCS: 36415; 71045; 80048; 80053; 80061; 83735; 83880; 84443; 84450; 84460; 84484; 85025; 85610; 85730; 92960; 93005; 93010; 93306; 93312; 93325; 93456; 96365; 96366; 96367; 96368; 96375; 99285-25; C1769; C1894; J0282; J1160; J1200; J1644; J1720; J1940; J2001; J2060; J2704; J3411; J3475; J3480; J3490; J7030; J7042; J7060; Q9967

== ENCOUNTER 2019-01-02 15:35 | Emergency (ER) | payer MEDICARE, OTHER ==
[~2019-01-02] VITALS: Ht 167.6 cm; Wt 56.2 kg
[~2019-01-02 15:35] MED LIST: ACET325 PO; Aspirin EC81 MG PO; BISA10S PR; CARV6.25 PO; DOCU100 PO; Estradiol1 MG PO; FAMO20 PO; FURO20 PO; K-Dur20 MEQ PO; NITR.4SL SL; ONDA4 PO; Pacerone100 MG PO; XARELTO20 MG PO
[2019-01-02 16:29] LABS: BASOPHILS ABSOLUTE AUTO 0.04 K/mm3 (0.00-0.23); BASOPHILS PERCENT AUTO 1 % (0-2); EOSINOPHILS ABSOLUTE AUTO 0.27 K/mm3 (0.00-0.68); EOSINOPHILS PERCENT AUTO 6 % (0-6); Hematocrit 34.2 % (33.0-51.0); Hemoglobin 10.6 g/dL (11.5-16.0); IMMATURE GRAN ABSOLUTE AUTO 0.03 K/mm3 (0.00-0.10); IMMATURE GRAN PERCENT AUTO 1 % (0-1); LYMPHOCYTES ABSOLUTE AUTO 1.08 K/mm3 (0.84-5.20); LYMPHOCYTES PERCENT AUTO 22 % (21-46); MONOCYTES ABSOLUTE AUTO 0.64 K/mm3 (0.16-1.47); MONOCYTES PERCENT AUTO 13 % (4-13); Mean Corpuscular HGB 32.3 pg (26.0-34.0); Mean Corpuscular Volume 104 fL (80-100); Mean Platelet Volume 9.7 fL (9.1-12.4); NEUTROPHILS ABSOLUTE AUTO 2.81 K/mm3 (1.96-9.15); NEUTROPHILS PERCENT AUTO 58 % (41-73); Platelet Count 161 K/mm3 (150-400); RDW Coefficient Variation 13.9 % (11.7-14.2); RDW Standard Deviation 53.3 fL (35.1-46.3); Red Blood Cell Count 3.28 M/mm3 (3.80-5.20); White Blood Cell Count 4.87 K/mm3 (4.00-11.30)
[2019-01-02 16:51] LABS: Albumin, Blood 3.4 g/dL (3.4-5.0); Albumin/Globulin Ratio 0.8 (0.8-1.8); Bilirubin, Total 0.6 mg/dL (0.1-1.0); Bun/Creatinine Ratio 15.2 (12.0-20.0); Calcium, Blood 8.8 mg/dL (8.5-10.1); Creatinine, Blood 1.05 mg/dL (0.40-1.00); Potassium, Blood 4.1 mmol/L (3.5-5.5); Total Protein, Blood 7.4 g/dL (6.4-8.2)
== END 2019-01-02 19:54 | disposition home or self-care (01) ==
LOC: ER 15:35
PROVIDERS: Physician Assistant
DX: R23.8 Other skin changes (principal); I50.9 Heart failure, unspecified; I48.91 Unspecified atrial fibrillation; Z88.0 Allergy status to penicillin; Z91.048 Other nonmedicinal substance allergy status; Z79.82 Long term (current) use of aspirin; Z79.899 Other long term (current) drug therapy
CPT/HCPCS: 36415; 80053; 85025; 93005; 93010; 99283-25

== ENCOUNTER → 2019-05-07 | Outpatient (CLI) | payer MEDICARE, OTHER ==
[~2019-05-07] MED LIST changes: +Amiodarone HCl200 MG PO; +SYNTHROID25 MCG PO
[2019-05-08 14:09] LABS: Stool Occult Bld Immuno 1 Positive (NEGATIVE)
== END | disposition home or self-care (01) ==
LOC: LAB FUT 05-05 15:35 → LAB SHORT 11:27 → LAB 11:27
PROVIDERS: Internal Medicine Gastroenterology
DX: D64.9 Anemia, unspecified (principal)
CPT/HCPCS: 82274

== ENCOUNTER 2019-05-09 11:24 | Observation (INO) | payer MEDICARE, OTHER ==
[~2019-05-09] VITALS: Ht 170.2 cm; Wt 58.1 kg
[~2019-05-09 11:24] MED LIST changes: -Amiodarone HCl200 MG PO; -SYNTHROID25 MCG PO
[2019-05-09 13:16] LABS: BASOPHILS ABSOLUTE AUTO 0.05 K/mm3 (0.00-0.23); BASOPHILS PERCENT AUTO 1 % (0-2); EOSINOPHILS ABSOLUTE AUTO 0.28 K/mm3 (0.00-0.68); EOSINOPHILS PERCENT AUTO 6 % (0-6); Hematocrit 25.6 % (33.0-51.0); Hemoglobin 7.1 g/dL (11.5-16.0); IMMATURE GRAN ABSOLUTE AUTO 0.01 K/mm3 (0.00-0.10); IMMATURE GRAN PERCENT AUTO 0 % (0-1); LYMPHOCYTES ABSOLUTE AUTO 1.14 K/mm3 (0.84-5.20); LYMPHOCYTES PERCENT AUTO 25 % (21-46); MONOCYTES ABSOLUTE AUTO 0.42 K/mm3 (0.16-1.47); MONOCYTES PERCENT AUTO 9 % (4-13); Mean Corpuscular HGB 24.4 pg (26.0-34.0); Mean Corpuscular HGB Conc 27.7 g/dL (31.5-36.5); Mean Corpuscular Volume 88 fL (80-100); Mean Platelet Volume 9.8 fL (9.1-12.4); NEUTROPHILS PERCENT AUTO 58 % (41-73); Platelet Count 211 K/mm3 (150-400); RDW Coefficient Variation 14.7 % (11.7-14.2); RDW Standard Deviation 47.6 fL (35.1-46.3); Red Blood Cell Count 2.91 M/mm3 (3.80-5.20)
[2019-05-09 13:40] LABS: Albumin, Blood 3.5 g/dL (3.4-5.0); Albumin/Globulin Ratio 0.8 (0.8-1.8); Bilirubin, Total 0.7 mg/dL (0.1-1.0); Bun/Creatinine Ratio 15.2 (12.0-20.0); Calcium, Blood 8.6 mg/dL (8.5-10.1); Creatinine, Blood 1.25 mg/dL (0.40-1.00); Globulin, Blood 4.3 g/dL (2.2-4.0); Potassium, Blood 4.6 mmol/L (3.5-5.5); Total Protein, Blood 7.8 g/dL (6.4-8.2)
[2019-05-09] MEDS ORDERED: SYNTHROID25 MCG PO (20:36)
[2019-05-09] MEDS ORDERED: Amiodarone HCl200 MG PO (20:36)
[2019-05-09 22:31] LABS: International Normalized Ratio 1.07; Prothrombin Time Results 11.3 Sec (9.7-11.5)
[2019-05-10 06:49] LABS: BASOPHILS ABSOLUTE AUTO 0.05 K/mm3 (0.00-0.23); BASOPHILS PERCENT AUTO 1 % (0-2); EOSINOPHILS PERCENT AUTO 2 % (0-6); Hematocrit 27.1 % (33.0-51.0); Hemoglobin 8.1 g/dL (11.5-16.0); IMMATURE GRAN ABSOLUTE AUTO 0.04 K/mm3 (0.00-0.10); IMMATURE GRAN PERCENT AUTO 1 % (0-1); LYMPHOCYTES PERCENT AUTO 20 % (21-46); MONOCYTES ABSOLUTE AUTO 0.36 K/mm3 (0.16-1.47); MONOCYTES PERCENT AUTO 8 % (4-13); Mean Corpuscular HGB 25.7 pg (26.0-34.0); Mean Corpuscular HGB Conc 29.9 g/dL (31.5-36.5); Mean Corpuscular Volume 86 fL (80-100); Mean Platelet Volume 9.4 fL (9.1-12.4); NEUTROPHILS ABSOLUTE AUTO 3.08 K/mm3 (1.96-9.15); NEUTROPHILS PERCENT AUTO 68 % (41-73); Platelet Count 177 K/mm3 (150-400); RDW Coefficient Variation 14.6 % (11.7-14.2); RDW Standard Deviation 46.2 fL (35.1-46.3); Red Blood Cell Count 3.15 M/mm3 (3.80-5.20); White Blood Cell Count 4.53 K/mm3 (4.00-11.30)
[2019-05-10 07:12] LABS: Calcium, Blood 8.4 mg/dL (8.5-10.1); Creatinine, Blood 1.2 mg/dL (0.40-1.00); Potassium, Blood 3.9 mmol/L (3.5-5.5)
--- NOTE | 2019-05-10 12:49 | NUR ---
INTO SDS VIA test company.PT A&OX3. HISTORY AND ALLERGIES REVIEWED. NPO STATUS AND BOWEL PREP CONFIRMED.LAST DOSE OF XARELTO 05/08/19 @ 1800-DR. SYLVESTER AWARE.LUNGS CLEAR-MURMUR AUSCULTATED.
[2019-05-10 12:53] LABS: Hemoglobin 7.9 g/dL (11.5-16.0)
--- NOTE | 2019-05-10 13:14 | NUR ---
05/10/19 1314 Gina Murillo History, Chart, Medications and Allergies reviewed before start of procedure.PATIENT DETERMINED TO BE ASA APPROPRIATE FOR PROPOFOL SEDATION PRIOR TO START OF PROCEDURE BY .MONITOR INTACT WITH CONTINUOUS PULSE OXIMETRY AND INTERMITTENT BP.3-LEAD EKG REVIEWED WITH PHYSICIAN PRIOR TO START OF PROCEDURE.O2 VIA N/C INTACT THROUGHOUT SEDATION/PROCEDURE.
[2019-05-10 15:47] LABS: Hematocrit 27.3 % (33.0-51.0); Hemoglobin 8.2 g/dL (11.5-16.0)
[2019-05-10 19:31] LABS: Hematocrit 25.9 % (33.0-51.0); Hemoglobin 7.6 g/dL (11.5-16.0)
[2019-05-10 23:21] LABS: Hematocrit 24.9 % (33.0-51.0); Hemoglobin 7.5 g/dL (11.5-16.0)
[2019-05-11 04:36] LABS: BASOPHILS ABSOLUTE AUTO 0.03 K/mm3 (0.00-0.23); BASOPHILS PERCENT AUTO 1 % (0-2); EOSINOPHILS ABSOLUTE AUTO 0.24 K/mm3 (0.00-0.68); EOSINOPHILS PERCENT AUTO 5 % (0-6); Hematocrit 25.9 % (33.0-51.0); Hemoglobin 7.6 g/dL (11.5-16.0); IMMATURE GRAN ABSOLUTE AUTO 0.02 K/mm3 (0.00-0.10); IMMATURE GRAN PERCENT AUTO 0 % (0-1); LYMPHOCYTES ABSOLUTE AUTO 1.35 K/mm3 (0.84-5.20); LYMPHOCYTES PERCENT AUTO 30 % (21-46); MONOCYTES ABSOLUTE AUTO 0.44 K/mm3 (0.16-1.47); MONOCYTES PERCENT AUTO 10 % (4-13); Mean Corpuscular HGB 25.9 pg (26.0-34.0); Mean Corpuscular HGB Conc 29.3 g/dL (31.5-36.5); Mean Corpuscular Volume 88 fL (80-100); Mean Platelet Volume 10.1 fL (9.1-12.4); NEUTROPHILS ABSOLUTE AUTO 2.46 K/mm3 (1.96-9.15); NEUTROPHILS PERCENT AUTO 54 % (41-73); Platelet Count 161 K/mm3 (150-400); RDW Standard Deviation 48.3 fL (35.1-46.3); Red Blood Cell Count 2.93 M/mm3 (3.80-5.20); White Blood Cell Count 4.54 K/mm3 (4.00-11.30)
[2019-05-11 05:12] LABS: Albumin, Blood 2.9 g/dL (3.4-5.0); Albumin/Globulin Ratio 0.9 (0.8-1.8); Bilirubin, Total 0.9 mg/dL (0.1-1.0); Bun/Creatinine Ratio 13.1 (12.0-20.0); Calcium, Blood 8.2 mg/dL (8.5-10.1); Creatinine, Blood 1.22 mg/dL (0.40-1.00); Globulin, Blood 3.3 g/dL (2.2-4.0); Potassium, Blood 4.1 mmol/L (3.5-5.5); Total Protein, Blood 6.2 g/dL (6.4-8.2)
--- NOTE | 2019-05-11 06:29 | NUR ---
SHIFT SUMMARY PT IS AN 83 Y/O FEMALE, ADMITTED FOR A GI BLEED. SHE IS A&O X 4, THOUGH FORGETFUL, AND INDEPENDENT IN THE ROOM. PT RECEIVED A DOSE OF IV IRON DURING THE NIGHT, THEN CONTINUOUS LR @ 50 ML/HR. SHE DENIED ANY COMPLAINTS OF ACUTE PAIN, NAUSEA OR SOB, AND SLEPT WELL FOR A FEW HOURS DURING THE NIGHT. VITAL SIGNS STABLE. NO OTHER ACUTE CHANGES IN PT CONDITION NOTED. WILL CONTINUE TO MONITOR AND TREAT PER EMAR UNTIL HAND OFF TO DAY SHIFT RN.
[2019-05-11 07:17] LABS: Hematocrit 25.5 % (33.0-51.0); Hemoglobin 7.5 g/dL (11.5-16.0)
--- NOTE | 2019-05-11 10:34 | NUR ---
PT DISCHARGED TO HOME WITH . PT A&O, SELF AMBULATORY IN THE ROOM. PT BELONGINGS WITH THE PATIENT. PT TO THE VEHICLE BY WHEELCHAIR. PT EDUCATED ON DISCHARGE PLAN AND MEDICATIONS. PT VERBALIZED UNDERSTANDING OF DISCHARGE EDUCATION. IVS REMOVED PRIOR TO DISCHARGE.
== END 2019-05-11 10:25 | disposition home or self-care (01) ==
LOC: ER 11:24 → ERHOLD 11:25 → MEDS 11:25 → ERHOLD 11:25 → MEDS 05-10 13:07 → ENPENDDIS 05-11 09:02 → MEDS 05-11 10:25
PROVIDERS: Emergency Medicine; Internal Medicine; Nurse Practitioner Acute Care; ADMIT Internal Medicine
PROC: 0DJD8ZZ Inspection of Lower Intestinal Tract, Via Natural or Artificial Opening Endoscopic (ICD-10-PCS; principal; 2019-05-11)
PROC: 0DJ08ZZ Inspection of Upper Intestinal Tract, Via Natural or Artificial Opening Endoscopic (ICD-10-PCS; principal; 2019-05-11)
DX: K92.2 Gastrointestinal hemorrhage, unspecified (principal); D50.0 Iron deficiency anemia secondary to blood loss (chronic); I48.2 Chronic atrial fibrillation; I35.2 Nonrheumatic aortic (valve) stenosis with insufficiency; E03.9 Hypothyroidism, unspecified; N18.3 Chronic kidney disease, stage 3 (moderate); F19.90 Other psychoactive substance use, unspecified, uncomplicated; K44.9 Diaphragmatic hernia without obstruction or gangrene; K63.5 Polyp of colon; Z88.0 Allergy status to penicillin; Z91.041 Radiographic dye allergy status; Z79.899 Other long term (current) drug therapy
CPT/HCPCS: 36415; 36416; 36430; 80048; 80053; 85014; 85018; 85025; 85610; 85730; 86850; 86900; 86901; 86923; 96365; 96366; 96375; 96376; 99285-25; C9113; G0378; J1750; J2704; J7030; J7050; J7120; P9016

== ENCOUNTER 2019-05-15 10:50 | Day surgery (SDC) | payer MEDICARE, OTHER ==
[~2019-05-15] VITALS: Ht 164 cm; Wt 58.5 kg
[~2019-05-15 10:50] MED LIST changes: +Amiodarone HCl200 MG PO; +SYNTHROID25 MCG PO
--- NOTE | 2019-05-15 12:02 | NUR ---
Ambulatory in Day Surgery History, Chart, Medications and Allergies reviewed before start of procedure.Patient confirms NPO status and agrees with scheduled surgery. Patient states colon prep results clear.Lungs clear T/O to Auscultation.
--- NOTE | 2019-05-15 13:21 | NUR ---
05/15/19 1321 Galo Jonas 3-LEAD EKG REVIEWED WITH PHYSICIAN PRIOR TO START OF PROCEDURE.PATIENT CONFIRMS NPO STATUS AND AGREES WITH SCHEDULED PROCEDURE.History, Chart, Medications and Allergies reviewed before start of procedure. MONITOR INTACT WITH CONTINUOUS PULSE OXIMETRY AND INTERMITTENT BP. O2 VIA N/C INTACT THROUGHOUT SEDATION/PROCEDURE.
== END 2019-05-15 16:12 | disposition home or self-care (01) ==
LOC: ORSCMMR 10:50
PROVIDERS: Internal Medicine Gastroenterology
PROC: 3E0H8GC Introduction of Other Therapeutic Substance into Lower GI, Via Natural or Artificial Opening Endoscopic (ICD-10-PCS; principal; 2019-05-15 12:30)
PROC: 0DBN8ZX Excision of Sigmoid Colon, Via Natural or Artificial Opening Endoscopic, Diagnostic (ICD-10-PCS; principal; 2019-05-15 12:30)
PROC: 0DBH8ZX Excision of Cecum, Via Natural or Artificial Opening Endoscopic, Diagnostic (ICD-10-PCS; principal; 2019-05-15 12:30)
PROC: 0DBK8ZX Excision of Ascending Colon, Via Natural or Artificial Opening Endoscopic, Diagnostic (ICD-10-PCS; principal; 2019-05-15 12:30)
PROC: 0DBL8ZX Excision of Transverse Colon, Via Natural or Artificial Opening Endoscopic, Diagnostic (ICD-10-PCS; principal; 2019-05-15 12:30)
DX: D50.9 Iron deficiency anemia, unspecified (principal); Z86.010 Personal history of colon polyps; D12.2 Benign neoplasm of ascending colon; D12.3 Benign neoplasm of transverse colon; D12.5 Benign neoplasm of sigmoid colon; D12.0 Benign neoplasm of cecum; I10 Essential (primary) hypertension; J45.909 Unspecified asthma, uncomplicated; E03.9 Hypothyroidism, unspecified; Z79.82 Long term (current) use of aspirin; Z79.899 Other long term (current) drug therapy; Z79.01 Long term (current) use of anticoagulants
CPT/HCPCS: 88305; J2704; J7030; J7120

== ENCOUNTER 2019-10-21 10:23 | Day surgery (SDC) | payer MEDICARE, OTHER ==
[~2019-10-21] VITALS: Ht 162.6 cm; Wt 58.4 kg
--- NOTE | 2019-10-21 11:31 | NUR ---
10/21/19 1131 CLEMENTE DE LA GARZA TWO BAD IVS IN HAND AND WRIST DUE TO BLOWN VEIN AND VEIN MOVING AWAY. ONE GOOD IV IN R AC BY CRUZITO, FLOWING GREAT.
== END 2019-10-21 13:23 | disposition home or self-care (01) ==
LOC: ORSCSDS 10:23
PROVIDERS: Internal Medicine Gastroenterology
PROC: 0DBH8ZX Excision of Cecum, Via Natural or Artificial Opening Endoscopic, Diagnostic (ICD-10-PCS; principal; 2019-10-21 12:00)
PROC: 0DBN8ZX Excision of Sigmoid Colon, Via Natural or Artificial Opening Endoscopic, Diagnostic (ICD-10-PCS; principal; 2019-10-21 12:00)
PROC: 0DBK8ZX Excision of Ascending Colon, Via Natural or Artificial Opening Endoscopic, Diagnostic (ICD-10-PCS; principal; 2019-10-21 12:00)
PROC: 0DBM8ZX Excision of Descending Colon, Via Natural or Artificial Opening Endoscopic, Diagnostic (ICD-10-PCS; principal; 2019-10-21 12:00)
PROC: 3E0H8GC Introduction of Other Therapeutic Substance into Lower GI, Via Natural or Artificial Opening Endoscopic (ICD-10-PCS; principal; 2019-10-21 12:00)
DX: D64.9 Anemia, unspecified (principal); Z86.010 Personal history of colon polyps; D12.0 Benign neoplasm of cecum; D12.2 Benign neoplasm of ascending colon; D12.4 Benign neoplasm of descending colon; D12.5 Benign neoplasm of sigmoid colon; I10 Essential (primary) hypertension; I48.91 Unspecified atrial fibrillation; Z79.01 Long term (current) use of anticoagulants; E03.9 Hypothyroidism, unspecified; Z79.899 Other long term (current) drug therapy
CPT/HCPCS: 88305; J2370; J2704; J7120

== ENCOUNTER 2020-04-21 08:55 | Day surgery (SDC) | payer MEDICARE, OTHER ==
[~2020-04-21] VITALS: Ht 162.6 cm; Wt 58.0 kg
[~2020-04-21 08:55] MED LIST changes: +ATOR20 PO
[2020-04-21] MEDS ORDERED: ENTRESTO 24 MG1 EAC3 PO (09:54)
--- NOTE | 2020-04-21 13:00 | NUR ---
PT BROUGHT BACK TO RECOVERY ROOM WITH TR BAND ON RIGHT WRIST, AIR IN, SITE SOFT NON TENDER WITH NO BLEEDING OR OOZING. RIGHT VENOUS BRACHIAL AND RIGHT FEMORAL VENOUS SITES APPEAR SOFT NON TENDER ALSO WITH NO BLEEDING OR OOZING NOTED. PT AWAKE AND ALERT. DENIES PAIN. CALL LIGHT IN REACH.
--- NOTE | 2020-04-21 14:00 | NUR ---
HOB RAISED TO 45 DEGREES ALL SITES APPEAR TO BE WNL. SOFT NON TENDER WITH NO EXTERNAL BLEEDING FROM ANY OF THE THREE SITES. PT AT BEDSIDE TO ASSIST WITH EATING/DRINKING. CHAPIN HAND, RT IN ROOM TO MONITOR PATIENTS SITES.
--- NOTE | 2020-04-21 15:05 | NUR ---
PT OUT OF BED, STEADY GAIT, UNMEASURED VOID. PRESENT AT BEDSIDE DURING DISCUSSION OF DISCHARGE INSTRUCTIONS. PT ENCOURAGED TO FOLLOW UP WITH PROVIDER SCHEDULED. VERBALIZED UNDERSTANDING OF DISCHARGE INSTRUCTIONS.
--- NOTE | 2020-04-21 15:31 | NUR ---
PT VERBALIZED UNDERSTANDING OF D/C INSTRUCTIONS. TR BAND REMOVED FROM RIGHT WRIST RED CLOTH DOT DRESSING APPLIED. SITE SOFT NON TENDER WITH NO ACTIVE BLEEDING, OOZING, OR PAIN. RIGHT FEMORAL VENOUS SITE APPEARS SOFT WITH NO SIGNS OF BLEEDING OR OOZING. RIGHT BRACHIAL VENOUS SITE ALSO APPEARS SOFT WITH NO BLEEDING. PT GETS DRESSED WITH ASSISTANCE FROM HER . DENIES NEED FOR W/C OUT TO PRIVATE VEHICLE, STEADY GAIT. VSS. IV REMOVED FROM LFA WITH CATH INTACT, PRESSURE DRESSING APPLIED. NO ACUTE DISTRESS NOTED AT TIME OF DISCHARGE.
== END 2020-04-21 15:30 | disposition home or self-care (01) ==
LOC: MHTC 08:55
PROC: 4A023N8 Measurement of Cardiac Sampling and Pressure, Bilateral, Percutaneous Approach (ICD-10-PCS; principal; 2020-04-21)
PROC: B201YZZ Plain Radiography of Multiple Coronary Arteries using Other Contrast (ICD-10-PCS; principal; 2020-04-21)
DX: I35.0 Nonrheumatic aortic (valve) stenosis (principal); I27.20 Pulmonary hypertension, unspecified; I11.0 Hypertensive heart disease with heart failure; I50.22 Chronic systolic (congestive) heart failure; I25.10 Atherosclerotic heart disease of native coronary artery without angina pectoris; E03.9 Hypothyroidism, unspecified; I65.23 Occlusion and stenosis of bilateral carotid arteries; D64.9 Anemia, unspecified; F10.11 Alcohol abuse, in remission; Z88.0 Allergy status to penicillin; Z91.041 Radiographic dye allergy status; Z79.01 Long term (current) use of anticoagulants; Z79.899 Other long term (current) drug therapy; Z91.030 Bee allergy status; Z86.73 Personal history of transient ischemic attack (TIA), and cerebral infarction without residual deficits; Y90.9 Presence of alcohol in blood, level not specified
CPT/HCPCS: 76937; 93005; 93010; 93456; C1769; C1894; J1200; J1644; J1720; J2250; J3010; J7030; J7050; Q9967

== ENCOUNTER → 2022-04-19 | Outpatient (CLI) | payer MEDICARE ==
[~2022-04-19] MED LIST changes: +ENTRESTO 24 MG1 EAC3 PO
[2022-04-19 20:10] LABS: Percent Saturation 7.3 % (15.0-50.0)
== END | disposition home or self-care (01) ==
LOC: LAB SHORT 11:36 → LAB 11:36
PROVIDERS: Internal Medicine Hematology & Oncology
DX: D50.0 Iron deficiency anemia secondary to blood loss (chronic) (principal); E53.8 Deficiency of other specified B group vitamins
CPT/HCPCS: 82607; 82728; 82746; 83540; 83550

== ENCOUNTER 2023-05-14 16:34 | Inpatient (IN) | payer MEDICARE, OTHER ==
[~2023-05-14] VITALS: Ht 165.1 cm; Wt 50.9 kg
[2023-05-14 17:22] LABS: BASOPHILS ABSOLUTE AUTO 0.05 K/mm3 (0.00-0.23); BASOPHILS PERCENT AUTO 1 % (0-2); EOSINOPHILS ABSOLUTE AUTO 0.18 K/mm3 (0.00-0.68); EOSINOPHILS PERCENT AUTO 3 % (0-6); Hematocrit 42.5 % (33.0-51.0); Hemoglobin 13.5 g/dL (11.5-16.0); IMMATURE GRAN ABSOLUTE AUTO 0.02 K/mm3 (0.00-0.10); IMMATURE GRAN PERCENT AUTO 0 % (0-1); LYMPHOCYTES ABSOLUTE AUTO 1.14 K/mm3 (0.84-5.20); LYMPHOCYTES PERCENT AUTO 20 % (21-46); MONOCYTES ABSOLUTE AUTO 0.41 K/mm3 (0.16-1.47); MONOCYTES PERCENT AUTO 7 % (4-13); Mean Corpuscular HGB 33.1 pg (26.0-34.0); Mean Corpuscular HGB Conc 31.8 g/dL (31.5-36.5); Mean Corpuscular Volume 104 fL (80-100); Mean Platelet Volume 10.7 fL (9.1-12.4); NEUTROPHILS ABSOLUTE AUTO 3.89 K/mm3 (1.96-9.15); NEUTROPHILS PERCENT AUTO 68 % (41-73); Platelet Count 113 K/mm3 (150-400); RDW Coefficient Variation 14.4 % (11.7-14.2); RDW Standard Deviation 54.5 fL (35.1-46.3); Red Blood Cell Count 4.08 M/mm3 (3.80-5.20); White Blood Cell Count 5.69 K/mm3 (4.00-11.30)
[2023-05-14 17:40] LABS: Albumin, Blood 3.8 g/dL (3.4-5.0); Albumin/Globulin Ratio 1.2 (0.8-1.8); Bilirubin, Total 1.3 mg/dL (0.1-1.0); Bun/Creatinine Ratio 21.4 (12.0-20.0); Calcium, Blood 8.9 mg/dL (8.5-10.1); Creatinine, Blood 1.31 mg/dL (0.40-1.00); Globulin, Blood 3.3 g/dL (2.2-4.0); Potassium, Blood 3.5 mmol/L (3.5-5.5); Total Protein, Blood 7.1 g/dL (6.4-8.2)
[2023-05-14 17:50] LABS: Free Thyroxine 1.15 ng/dL (0.70-1.60); Magnesium, Blood 2.3 mg/dL (1.6-2.4)
[2023-05-14 17:52] LABS: Thyroid Stimulating Hormone 4.69 uIU/mL (0.360-4.800)
[2023-05-15] VITALS (8 sets, daily range): BP systolic 91–130; BP diastolic 59–90
[2023-05-15 04:07] LABS: Hematocrit 38.4 % (33.0-51.0); Hemoglobin 12.3 g/dL (11.5-16.0); Mean Corpuscular Volume 103 fL (80-100); Mean Platelet Volume 10.6 fL (9.1-12.4); Platelet Count 83 K/mm3 (150-400); RDW Coefficient Variation 14.4 % (11.7-14.2); RDW Standard Deviation 54.4 fL (35.1-46.3); Red Blood Cell Count 3.73 M/mm3 (3.80-5.20); White Blood Cell Count 5.02 K/mm3 (4.00-11.30)
[2023-05-15 05:28] LABS: PCO2 Arterial 35.8 mmHg (35-45); PO2 Arterial 77.7 mmHg (80-100); pH Blood Arterial 7.44 (7.35-7.45)
[2023-05-15 06:08] LABS: Albumin, Blood 3.2 g/dL (3.4-5.0); Albumin/Globulin Ratio 1.2 (0.8-1.8); Bilirubin, Total 1.4 mg/dL (0.1-1.0); Bun/Creatinine Ratio 21.7 (12.0-20.0); Calcium, Blood 8.5 mg/dL (8.5-10.1); Creatinine, Blood 1.15 mg/dL (0.40-1.00); Globulin, Blood 2.6 g/dL (2.2-4.0); Potassium, Blood 3.5 mmol/L (3.5-5.5); Total Protein, Blood 5.8 g/dL (6.4-8.2)
[2023-05-15] MEDS ORDERED: VITAMIN D310 MC5 PO (09:46)
--- NOTE | 2023-05-15 18:54 | NUR ---
ASSUMED CARE OF PT 0700 THIS AM. HR 110-130s T/O THE DAY. METOPROLOL PUSES INEFFECTIVE FOR HR CONTROL. ECHO COMPLETED THIS AFTERNOON, DR SIMMONS NOTIFIED WHEN RESULTS WERE AVAILABLE AND NEW ORDERS RECEIVED. CARDIZEM PUSH GIVEN AND HAS BEEN EFFECTIVE FOR HR CONTROL, HR 90-100s AT THIS TIME. MEDICATIONS RECONCILED WITH PT'S AND DR SIMMONS UPDATED. PT HAS HAD NO COMPLAINTS. ASYMPTOMATIC T/O THE DAY. PT IS ABLE TO USE CALL LIGHT FOR NEEDS, CALL LIGHT IN REACH, WILL CONTINUE TO MONITOR AND GIVE REPORT TO ONCOMING SHIFT RN.
--- NOTE | 2023-05-15 22:00 | NUR ---
ASSUMING CARE OF PT
[2023-05-16] VITALS (8 sets, daily range): BP systolic 91–104; BP diastolic 61–72
[2023-05-16 04:22] LABS: BASOPHILS ABSOLUTE AUTO 0.06 K/mm3 (0.00-0.23); BASOPHILS PERCENT AUTO 1 % (0-2); EOSINOPHILS ABSOLUTE AUTO 0.19 K/mm3 (0.00-0.68); EOSINOPHILS PERCENT AUTO 4 % (0-6); Hematocrit 39.9 % (33.0-51.0); Hemoglobin 12.9 g/dL (11.5-16.0); IMMATURE GRAN ABSOLUTE AUTO 0.01 K/mm3 (0.00-0.10); IMMATURE GRAN PERCENT AUTO 0 % (0-1); LYMPHOCYTES ABSOLUTE AUTO 1.27 K/mm3 (0.84-5.20); LYMPHOCYTES PERCENT AUTO 26 % (21-46); MONOCYTES ABSOLUTE AUTO 0.41 K/mm3 (0.16-1.47); MONOCYTES PERCENT AUTO 8 % (4-13); Mean Corpuscular HGB 33.3 pg (26.0-34.0); Mean Corpuscular HGB Conc 32.3 g/dL (31.5-36.5); Mean Corpuscular Volume 103 fL (80-100); Mean Platelet Volume 10.5 fL (9.1-12.4); NEUTROPHILS ABSOLUTE AUTO 3.02 K/mm3 (1.96-9.15); NEUTROPHILS PERCENT AUTO 61 % (41-73); Platelet Count 89 K/mm3 (150-400); RDW Coefficient Variation 14.3 % (11.7-14.2); RDW Standard Deviation 54.1 fL (35.1-46.3); Red Blood Cell Count 3.87 M/mm3 (3.80-5.20); White Blood Cell Count 4.96 K/mm3 (4.00-11.30)
[2023-05-16 04:44] LABS: Albumin, Blood 2.7 g/dL (3.4-5.0); Anion Gap 5 mmol/L (6-16); Blood Urea Nitrogen 29 mg/dL (8-24); Bun/Creatinine Ratio 29.5 (12.0-20.0); CO2, Blood 27 mmol/L (21-32); Calcium, Blood 8.3 mg/dL (8.5-10.1); Chloride, Blood 113 mmol/L (98-108); Creatinine, Blood 0.98 mg/dL (0.40-1.00); Glomerular Filtration Rate 56 (60-); Glucose, Blood 102 mg/dL (70-99); Phosphorus, Blood 3.1 mg/dL (2.5-4.9); Potassium, Blood 3.3 mmol/L (3.5-5.5); Sodium, Blood 145 mmol/L (136-145)
--- NOTE | 2023-05-16 06:13 | NUR ---
SHIFT SUMMARY PT ALERT AND ORIENTED X 4. NO ACUTE CHANGES T/O SHIFT. BP STABLE, MAP ABLVE 65. HR STABLE. NO CP OR PRESSURE REPORTED. OXYGEN SATURATION MAINTAINED ABOVE 92% ON RA. PT IND IN ROOM. REMINDED TO USE HAT IN TOILET WHEN VOIDING TO ACCURATELY MONITOR I&O. CALL LIGHT WITHIN REACH. WILL CONT TO MONITOR UNTIL REPORT GIVEN TO DAYSHIFT RN.
--- NOTE | 2023-05-16 10:22 | NUR ---
AM NOTES: PT HRR STILL UP TO 140-160'S WITH SBP 98-100'S, SATS ABOVE 95% ON RA, AFEBRILE. PT DENIES ANY CHEST PAIN, HRR INCREASES WITH EXERTIONA DN EVEN WHEN PT'S TALKING. ALERT AND ORIENTED X4 FORGETFUL AT TIMES CALLS APPROPRIATELY. CARDIOLOGY CONSULTED, DR RUIZ ALREADY SAW PT ORDERED LEXISCAN AND AMIODARONE GTT. TO KEEP PT NPOS FOR NOW FOR STRESS TEST, AT THE BEDSIDE WAS GIVEN UPDATE ABOUT PT STATUS. REPORT GIVEN TO CASSIA COLBY
--- NOTE | 2023-05-16 11:47 | NUR ---
NURSING PCU DAYSHIFT: Assumed care of pt at approx 1100. A/O, pleasant, cooperative w/care. Afib w/HR 100-120, no c/o CP/pressure, SBP 90's. Respiratory status stable. Seen by PMD and department coordinator this a.m., new d/o reviewed. Amio bolus administered, VS monitored, 24hr amio gtt initiated at approx 1145. Pt resting comfortably w/spouse at bedside. Plan of care discussed and questions answered. Pt and s/o deny any current needs. Call light in reach, cont to monitor for any changes.
--- NOTE | 2023-05-16 18:17 | NUR ---
NURSING PCU DAYSHIFT SUMMARY: No significant changes noted t/o the shift. Pt ambulates to bathroom w/o difficulty, only requires assistance for line management. HR 100-120 w/amio gtt infusing at decreased rate of 16.7 mls/hr, turned to half rate at approx 1745. No s/s of acute distress. Plan for stress test as per d/o, NPO at 2400. Pt denies any current questions/needs. Call light in reach, cont to monitor until rpt is given to NOC RN.
[2023-05-17] VITALS (7 sets, daily range): BP systolic 96–113; BP diastolic 73–101
--- NOTE | 2023-05-17 05:04 | NUR ---
SHIFT SUMMARY THIS RN ASSUMED CARE OF PATIENT AT 1900. A&O. ABLE TO MAKE NEEDS KNOWN. SBA TO BATHROOM. AFIB WITH HR 100-120'S; INCREASING TO 130-140'S WITH ACTIVITY. ON AMIO GTT PER EMAR. BP STABLE. ON RA WITH SPO2 >92%. DENIES CHEST PAIN/PRESSURE, SOB, AND DIZZINESS. PT HAS BEEN NPO SINCE MIDNIGHT FOR STRESS TEST THIS AM. BED IN LOWEST POSITION AND CALL LIGHT WITHIN REACH. THIS RN WILL REPORT TO ONCOMING RN.
[2023-05-17 06:04] LABS: BASOPHILS ABSOLUTE AUTO 0.05 K/mm3 (0.00-0.23); BASOPHILS PERCENT AUTO 1 % (0-2); EOSINOPHILS ABSOLUTE AUTO 0.18 K/mm3 (0.00-0.68); EOSINOPHILS PERCENT AUTO 2 % (0-6); Hemoglobin 14.6 g/dL (11.5-16.0); IMMATURE GRAN ABSOLUTE AUTO 0.03 K/mm3 (0.00-0.10); IMMATURE GRAN PERCENT AUTO 0 % (0-1); LYMPHOCYTES ABSOLUTE AUTO 1.73 K/mm3 (0.84-5.20); LYMPHOCYTES PERCENT AUTO 23 % (21-46); MONOCYTES ABSOLUTE AUTO 0.74 K/mm3 (0.16-1.47); MONOCYTES PERCENT AUTO 10 % (4-13); Mean Corpuscular HGB 33.3 pg (26.0-34.0); Mean Corpuscular HGB Conc 32.4 g/dL (31.5-36.5); Mean Corpuscular Volume 103 fL (80-100); Mean Platelet Volume 10.6 fL (9.1-12.4); NEUTROPHILS ABSOLUTE AUTO 4.88 K/mm3 (1.96-9.15); NEUTROPHILS PERCENT AUTO 64 % (41-73); Platelet Count 109 K/mm3 (150-400); RDW Coefficient Variation 14.4 % (11.7-14.2); RDW Standard Deviation 54.7 fL (35.1-46.3); Red Blood Cell Count 4.39 M/mm3 (3.80-5.20); White Blood Cell Count 7.61 K/mm3 (4.00-11.30)
[2023-05-17 06:40] LABS: Albumin, Blood 3.4 g/dL (3.4-5.0); Anion Gap 6 mmol/L (6-16); Blood Urea Nitrogen 31 mg/dL (8-24); Bun/Creatinine Ratio 25.8 (12.0-20.0); CO2, Blood 27 mmol/L (21-32); Calcium, Blood 8.9 mg/dL (8.5-10.1); Chloride, Blood 108 mmol/L (98-108); Glomerular Filtration Rate 44 (60-); Glucose, Blood 132 mg/dL (70-99); Phosphorus, Blood 3.7 mg/dL (2.5-4.9); Potassium, Blood 4.2 mmol/L (3.5-5.5); Sodium, Blood 141 mmol/L (136-145)
[2023-05-17 07:37] LABS: Albumin, Blood 3.4 g/dL (3.4-5.0); Bilirubin, Direct 0.3 mg/dL (0.0-0.3); Bilirubin, Indirect 0.9 mg/dL (0.1-0.7); Bilirubin, Total 1.2 mg/dL (0.1-1.0); Globulin, Blood 3.3 g/dL (2.2-4.0); Total Protein, Blood 6.7 g/dL (6.4-8.2)
--- NOTE | 2023-05-17 07:55 | NUR ---
AM ASSESSMENT: Pt resting in bed with amio gtt running. HR shows afib with PVC's, rate in low 100's currently. Pt denies CP, SOB or dizziness. BP stable. LS clear, BT positive. PT states that she was able to have a normal BM last noc. Pt educated on plan of care with stress test this am. Denies questions. New IV's placed in L FA and R FA IV discontinued due to redness. Pt tolerated well. Call light in reach. Denies needs at this time. Will continue to monitor.
--- NOTE | 2023-05-17 17:47 | NUR ---
SHIFT SUMMARY: Pt sitting up eating dinner. Has done well this shift. Amioderone gtt was turned off at 1140 at PO amioderone was started. Pt HR has been in the low 100's most of the day but has started to tach up this evening, has been medicated per orders. Pt has denied CP, SOB or dizziness throughout the shift. Other VSS throughout shift. Resting portion of stress test was done this am. NPO after midnight for stress portion tomorrow in AM. Pt denies questions or needs. Will report to night RN.
[2023-05-18 03:00] VITALS: BP 113/77
--- NOTE | 2023-05-18 04:23 | NUR ---
SHIFT SUMMARY THIS RN ASSUMED CARE OF PATIENT AT 1900. PT A&O X4, BUT APPEARS FORGETFUL AT TIMES. TALKATIVE BUT COOPERATIVE WITH CARE. PT VERY ACTIVE DURING THIS NOC SHIFT. AFIB WITH HR 100-120 AT REST; HR INCREASES TO 130-140'S WITH ACTIVITY. SBP 90-100'S. ON RA WITH SPO2 >92%. AFEBRILE. PT SBA/IND WITH ADL'S. BED IN LOWEST POSITION AND CALL LIGHT WITHIN REACH. THIS RN WILL REPORT TO ONCOMING DAYSHIFT RN.
[2023-05-18 08:11] VITALS: BP 104/81
[2023-05-18 12:05] VITALS: BP 93/66
--- NOTE | 2023-05-18 13:11 | NUR ---
UPDATE: SECOND PORTION OF STRESS TEST COMPLETED. PT TOLERATED WELL, CURRENTLY SITTING IN BED EATING.
[2023-05-18 15:18] VITALS: BP 107/79
--- NOTE | 2023-05-18 17:06 | NUR ---
SHIFT SUMMARY: PT ALERT AND ORIENTED X3, ABLE TO FOLLOW COMMANDS AND MAKE NEEDS KNOWN. FORGETFUL AT TIMES. BP STABLE. HR REMAINS AFIB 100-120'S AT REST, 130-140'S WITH ACTIVITY. DENIES CP/PRESSURE/SOB. AFEBRILE. SPO2 >98% ON ROOM AIR. RESPIRATIONS EVEN AND UNLABORED AT REST. PT WITH SECOND PORTION OF STRESS TEST THIS AFTERNOON, TOLERATED WELL. MD NOTIFIED OF PT UNCHANGED HR. NEW ORDERS RECEIVED, SEE EMAR. PLAN FOR POSSIBLE D/C TOMORROW. PT WITH COGNITIVE EVAL THIS AM. SEE OT NOTE. PT IND IN ROOM. NO BM THIS SHIFT. AT BEDSIDE THIS EVENING AND UPDATED ON PT CARE. BED IN LOW, CALL LIGHT IN REACH, WILL REPORT TO ONCOMING RN.
[2023-05-18 21:30] VITALS: BP 132/108
[2023-05-19 00:15] VITALS: BP 101/66
[2023-05-19 03:56] LABS: BASOPHILS ABSOLUTE AUTO 0.04 K/mm3 (0.00-0.23); BASOPHILS PERCENT AUTO 1 % (0-2); EOSINOPHILS ABSOLUTE AUTO 0.14 K/mm3 (0.00-0.68); EOSINOPHILS PERCENT AUTO 3 % (0-6); Hematocrit 39.1 % (33.0-51.0); Hemoglobin 12.7 g/dL (11.5-16.0); IMMATURE GRAN ABSOLUTE AUTO 0.03 K/mm3 (0.00-0.10); IMMATURE GRAN PERCENT AUTO 1 % (0-1); LYMPHOCYTES ABSOLUTE AUTO 1.26 K/mm3 (0.84-5.20); LYMPHOCYTES PERCENT AUTO 23 % (21-46); MONOCYTES ABSOLUTE AUTO 0.46 K/mm3 (0.16-1.47); MONOCYTES PERCENT AUTO 8 % (4-13); Mean Corpuscular HGB 33.3 pg (26.0-34.0); Mean Corpuscular HGB Conc 32.5 g/dL (31.5-36.5); Mean Corpuscular Volume 103 fL (80-100); Mean Platelet Volume 10.7 fL (9.1-12.4); NEUTROPHILS ABSOLUTE AUTO 3.56 K/mm3 (1.96-9.15); NEUTROPHILS PERCENT AUTO 65 % (41-73); Platelet Count 83 K/mm3 (150-400); RDW Coefficient Variation 14.5 % (11.7-14.2); RDW Standard Deviation 54.7 fL (35.1-46.3); Red Blood Cell Count 3.81 M/mm3 (3.80-5.20); White Blood Cell Count 5.49 K/mm3 (4.00-11.30)
[2023-05-19 04:06] VITALS: BP 93/75
[2023-05-19 04:36] LABS: Albumin/Globulin Ratio 1.1 (0.8-1.8); Bilirubin, Total 1.2 mg/dL (0.1-1.0); Bun/Creatinine Ratio 28.6 (12.0-20.0); Calcium, Blood 8.5 mg/dL (8.5-10.1); Creatinine, Blood 1.12 mg/dL (0.40-1.00); Globulin, Blood 2.8 g/dL (2.2-4.0); Potassium, Blood 3.9 mmol/L (3.5-5.5); Total Protein, Blood 5.8 g/dL (6.4-8.2)
--- NOTE | 2023-05-19 04:54 | NUR ---
SHIFT SUMMARY NO ACUTE CHANGES OVERNIGHT. AFIB WITH HR 90-110'S AT REST. HR INCREASING TO 120-130'S WITH ACTIVITY. PT A&O X4. ABLE TO MAKE NEEDS KNOWN. OCCASIONALLY FORGETFUL. BP STABLE. AFEBRILE. ON RA WITH SPO2 >92%. INDEPENDENT WITH ADL'S. CALLING APPROPRIATELY. BED IN LOWEST POSITION AND CALL LIGHT WITHIN REACH. THIS RN WILL REPORT TO ONCOMING DAYSHIFT RN.
[2023-05-19 07:28] VITALS: BP 108/81
[2023-05-19] MEDS ORDERED: Amiodarone HCl200 MG PO ×2 (10:35)
[2023-05-19] MEDS ORDERED: XARELTO15 MG PO (10:35)
[2023-05-19] MEDS ORDERED: METO50ER PO (10:36)
[2023-05-19] MEDS ORDERED: ERGO400 PO (10:37)
== END 2023-05-19 11:41 | disposition home or self-care (01) | DRG 291 ==
LOC: ER 16:34 → PCU 19:30
PROVIDERS: Family Medicine; Nurse Practitioner Acute Care; Physician Assistant; Student in an Organized Health Care Education/Training Program; ADMIT Internal Medicine
PROC: B24BZZZ Ultrasonography of Heart with Aorta (ICD-10-PCS; principal; 2023-05-15)
DX: I13.0 Hypertensive heart and chronic kidney disease with heart failure and stage 1 through stage 4 chronic kidney disease, or unspecified chronic kidney disease (principal); I50.23 Acute on chronic systolic (congestive) heart failure; N17.9 Acute kidney failure, unspecified; I48.0 Paroxysmal atrial fibrillation; I08.3 Combined rheumatic disorders of mitral, aortic and tricuspid valves; I27.20 Pulmonary hypertension, unspecified; E03.9 Hypothyroidism, unspecified; N18.30 Chronic kidney disease, stage 3 unspecified; R74.01 Elevation of levels of liver transaminase levels; R77.8 Other specified abnormalities of plasma proteins; D69.6 Thrombocytopenia, unspecified; D53.9 Nutritional anemia, unspecified; E87.6 Hypokalemia; Z79.01 Long term (current) use of anticoagulants; Z91.041 Radiographic dye allergy status; Z88.0 Allergy status to penicillin; Z91.038 Other insect allergy status; Z79.890 Hormone replacement therapy; Z85.828 Personal history of other malignant neoplasm of skin; Z90.49 Acquired absence of other specified parts of digestive tract; Z95.818 Presence of other cardiac implants and grafts
CPT/HCPCS: 36415; 36600; 71046; 78452; 80053; 80069; 80076; 82248; 82803; 83735; 83880; 84439; 84443; 84484; 85025; 85027; 93005; 93010; 93017; 93306; 96374; 96375; 96376; 97129; 97165; 99285-25; A9270; A9500; J0282; J0706; J1940; J2785; J7030; J7060

== ENCOUNTER 2023-07-11 19:26 | Emergency (ER) | payer MEDICARE, OTHER ==
[~2023-07-11] VITALS: Ht 165.1 cm; Wt 52.6 kg
[~2023-07-11 19:26] MED LIST changes: +ERGO400 PO; +METO50ER PO; +VITAMIN D310 MC5 PO; +XARELTO15 MG PO
[2023-07-11 19:54] LABS: BASOPHILS ABSOLUTE AUTO 0.06 K/mm3 (0.00-0.23); BASOPHILS PERCENT AUTO 1 % (0-2); EOSINOPHILS ABSOLUTE AUTO 0.17 K/mm3 (0.00-0.68); EOSINOPHILS PERCENT AUTO 3 % (0-6); Hematocrit 43.4 % (33.0-51.0); Hemoglobin 13.9 g/dL (11.5-16.0); IMMATURE GRAN ABSOLUTE AUTO 0.03 K/mm3 (0.00-0.10); IMMATURE GRAN PERCENT AUTO 1 % (0-1); LYMPHOCYTES ABSOLUTE AUTO 1.13 K/mm3 (0.84-5.20); LYMPHOCYTES PERCENT AUTO 20 % (21-46); MONOCYTES PERCENT AUTO 7 % (4-13); Mean Corpuscular HGB 33.6 pg (26.0-34.0); Mean Corpuscular Volume 105 fL (80-100); NEUTROPHILS ABSOLUTE AUTO 3.96 K/mm3 (1.96-9.15); NEUTROPHILS PERCENT AUTO 69 % (41-73); Platelet Count 74 K/mm3 (150-400); RDW Coefficient Variation 15.2 % (11.7-14.2); RDW Standard Deviation 58.9 fL (35.1-46.3); Red Blood Cell Count 4.14 M/mm3 (3.80-5.20); White Blood Cell Count 5.75 K/mm3 (4.00-11.30)
[2023-07-11 20:12] LABS: Albumin, Blood 3.8 g/dL (3.4-5.0); Albumin/Globulin Ratio 1.1 (0.8-1.8); Bilirubin, Total 1.2 mg/dL (0.1-1.0); Bun/Creatinine Ratio 25.8 (12.0-20.0); Calcium, Blood 9.4 mg/dL (8.5-10.1); Creatinine, Blood 1.55 mg/dL (0.40-1.00); Globulin, Blood 3.6 g/dL (2.2-4.0); Potassium, Blood 3.5 mmol/L (3.5-5.5); Total Protein, Blood 7.4 g/dL (6.4-8.2)
[2023-07-11 22:38] VITALS: BP 126/93
== END 2023-07-12 00:36 | disposition home or self-care (01) ==
LOC: ER 19:26
PROVIDERS: Student in an Organized Health Care Education/Training Program
DX: R60.0 Localized edema (principal); I50.9 Heart failure, unspecified; Z88.0 Allergy status to penicillin; Z91.030 Bee allergy status; Z91.048 Other nonmedicinal substance allergy status; Z79.890 Hormone replacement therapy; Z79.899 Other long term (current) drug therapy; Z79.02 Long term (current) use of antithrombotics/antiplatelets
CPT/HCPCS: 71046; 80053; 83880; 84484; 85025; 93005; 93010; 99284-25

== ENCOUNTER 2024-07-12 19:23 | Observation (INO) | payer MEDICARE, OTHER ==
[~2024-07-12] VITALS: Ht 167.6 cm; Wt 49.7 kg
[~2024-07-12 19:23] MED LIST changes: +Enoxaparin 30 MG/0.3 ML SYR SC SCH
[2024-07-12 20:14] LABS: Alanine Aminotransfer (ALT/SGP 29 U/L (12-78); Albumin, Blood 3.4 g/dL (3.4-5.0); Albumin/Globulin Ratio 1.1 (0.8-1.8); Alk Phos 54 U/L (50-136); Anion Gap 10 mmol/L (3-11); Aspartate Aminotrans (AST/SGOT 40 U/L (12-37); Bilirubin, Total 1.2 mg/dL (0.1-1.0); Blood Urea Nitrogen 15 mg/dL (8-24); Bun/Creatinine Ratio 13.5 (12.0-20.0); CO2, Blood 26 mmol/L (21-32); Calcium, Blood 9.2 mg/dL (8.5-10.1); Chloride, Blood 108 mmol/L (98-108); Creatinine, Blood 1.11 mg/dL (0.40-1.00); Ethanol (Alcohol), Blood, Med <3 mg/dL; Globulin, Blood 3.2 g/dL (2.2-4.0); Glomerular Filtration Rate 48 (60-); Glucose, Blood 109 mg/dL (70-99); Potassium, Blood 3.9 mmol/L (3.5-5.5); Sodium, Blood 140 mmol/L (136-145); Total Protein, Blood 6.6 g/dL (6.4-8.2)
[2024-07-12 20:24] LABS: U Amphetamine Screen Not Detected; U Barbituate Screen Not Detected; U Benzodiazapine Screen Not Detected; U Buprenorphine Screen Not Detected; U Cannabinoids Screen Not Detected; U Cocaine Screen Not Detected; U Methadone Screen Not Detected; U Methamphetamine Screen Not Detected; U Opiates Screen Not Detected; U Oxycodone Screen Not Detected; U Phencyclidine Screen Not Detected
[2024-07-12 20:31] LABS: BASOPHILS ABSOLUTE AUTO 0.02 K/mm3 (0.00-0.23); BASOPHILS PERCENT AUTO 0 % (0-2); EOSINOPHILS PERCENT AUTO 0 % (0-6); Hematocrit 38.2 % (33.0-51.0); Hemoglobin 12.4 g/dL (11.5-16.0); IMMATURE GRAN ABSOLUTE AUTO 0.03 K/mm3 (0.00-0.10); IMMATURE GRAN PERCENT AUTO 1 % (0-1); LYMPHOCYTES ABSOLUTE AUTO 0.34 K/mm3 (0.84-5.20); LYMPHOCYTES PERCENT AUTO 5 % (21-46); MONOCYTES ABSOLUTE AUTO 0.34 K/mm3 (0.16-1.47); MONOCYTES PERCENT AUTO 5 % (4-13); Mean Corpuscular HGB 34.2 pg (26.0-34.0); Mean Corpuscular HGB Conc 32.5 g/dL (31.5-36.5); Mean Corpuscular Volume 105 fL (80-100); Mean Platelet Volume 10.1 fL (9.1-12.4); NEUTROPHILS ABSOLUTE AUTO 5.89 K/mm3 (1.96-9.15); NEUTROPHILS PERCENT AUTO 89 % (41-73); Platelet Count 53 K/mm3 (150-400); RDW Coefficient Variation 13.2 % (11.7-14.2); RDW Standard Deviation 51.2 fL (35.1-46.3); Red Blood Cell Count 3.63 M/mm3 (3.80-5.20); White Blood Cell Count 6.62 K/mm3 (4.00-11.30)
[2024-07-12 20:57] LABS: Source, Urine Clean Catch
[2024-07-12 21:01] LABS: Appearance, Urine Clear (Clear); Bilirubin, Urine Neg (Neg); Blood, Urine 3+ (Neg); Color, Urine Yellow (P-Yellow); Glucose Qualitative, Urine Neg (Neg); Ketones, Urine Neg (Neg); Leukocyte Esterase, Urine Neg (Neg); Nitrite, Urine Neg (Neg); Protein, Urine 2+ (Neg); Urobilinogen, Urine NORM (Normal)
[2024-07-12 21:07] LABS: Amorphous Light (0-Heavy); Bacteria Few /hpf; Squamous Epithelial Cells Few /hpf (Few); White Blood Cells, Urine 0-2 /hpf (0-5)
[2024-07-12] MEDS ORDERED: NS 1,000 ML IV SCH (23:50)
[2024-07-12] MEDS ORDERED: Acetaminophen 325 MG TABLET PO PRN (23:50)
[2024-07-12] MEDS ORDERED: Ondansetron HCl 2 MG / ML 2ML Vial IV PRN (23:50)
[2024-07-12] MEDS ORDERED: FLU VACC TS2024-25(6MOS UP)/PF 45 MCG/0.5 ML SYRINGE IM ONE (23:50)
[2024-07-13 01:05] VITALS: BP 175/77
[2024-07-13 05:23] LABS: BASOPHILS ABSOLUTE AUTO 0.02 K/mm3 (0.00-0.23); BASOPHILS PERCENT AUTO 0 % (0-2); EOSINOPHILS PERCENT AUTO 0 % (0-6); Hematocrit 36.2 % (33.0-51.0); Hemoglobin 11.9 g/dL (11.5-16.0); IMMATURE GRAN ABSOLUTE AUTO 0.04 K/mm3 (0.00-0.10); IMMATURE GRAN PERCENT AUTO 1 % (0-1); LYMPHOCYTES ABSOLUTE AUTO 0.33 K/mm3 (0.84-5.20); LYMPHOCYTES PERCENT AUTO 5 % (21-46); MONOCYTES ABSOLUTE AUTO 0.26 K/mm3 (0.16-1.47); MONOCYTES PERCENT AUTO 4 % (4-13); Mean Corpuscular HGB 33.8 pg (26.0-34.0); Mean Corpuscular HGB Conc 32.9 g/dL (31.5-36.5); Mean Corpuscular Volume 103 fL (80-100); Mean Platelet Volume 10.7 fL (9.1-12.4); NEUTROPHILS ABSOLUTE AUTO 6.49 K/mm3 (1.96-9.15); NEUTROPHILS PERCENT AUTO 91 % (41-73); Platelet Count 57 K/mm3 (150-400); RDW Coefficient Variation 13.1 % (11.7-14.2); RDW Standard Deviation 49.6 fL (35.1-46.3); Red Blood Cell Count 3.52 M/mm3 (3.80-5.20); White Blood Cell Count 7.14 K/mm3 (4.00-11.30)
[2024-07-13 05:59] LABS: Albumin, Blood 3.2 g/dL (3.4-5.0); Albumin/Globulin Ratio 1.1 (0.8-1.8); Bilirubin, Total 1.2 mg/dL (0.1-1.0); Bun/Creatinine Ratio 15.8 (12.0-20.0); Creatinine, Blood 0.95 mg/dL (0.40-1.00); Free Thyroxine 1.32 ng/dL (0.70-1.60); Potassium, Blood 3.8 mmol/L (3.5-5.5); Thyroid Stimulating Hormone 1.36 uIU/mL (0.360-4.800); Total Protein, Blood 6.2 g/dL (6.4-8.2)
[2024-07-13] MEDS ORDERED: Nitroglycerin 0.4 MG SUBL SL PRN (06:20)
[2024-07-13 07:39] VITALS: BP 122/65
[2024-07-13] MEDS ORDERED: Amiodarone HCl 200 MG Tab PO SCH (09:00)
[2024-07-13] MEDS ORDERED: Metoprolol Succinate 50 MG TABCR PO SCH (09:00)
[2024-07-13] MEDS ORDERED: Estradiol 1 MG Tab PO SCH (09:00)
[2024-07-13] MEDS ORDERED: Rivaroxaban 10 MG Tab PO SCH (09:00)
[2024-07-13 15:17] VITALS: BP 135/71
--- NOTE | 2024-07-13 18:13 | NUR ---
SHIFT SUMMARY PT A&OX2-3 W/ CONFUSION, VSS, AMB TO BSC W/ 1-2P PIVOT ASSIST, TOLERATING MINIMAL PO, VOIDING, AND DENIED PAIN. PT IMPULSIVE AT TIMES, ATTEMPTING TO GET OUT OF BED. PT STATED THAT SHE THOUGHT SHE WAS HOME AND THAT THIS NURSE WAS IN HER HOME. PT EASILY REORIENTED. NS INFUSED AND COMPLETE PER ORDER. PT WORKED W/ PHYSICAL THERAPY, SEE THERAPY NOTE. NO OTHER ACUTE CHANGES. CALL LIGHT WITHIN REACH. BED ALARM ON FOR SAFETY.
[2024-07-13 20:44] VITALS: BP 139/73
[2024-07-13] MEDS ORDERED: Atorvastatin 10 MG Tab PO SCH (21:00)
[2024-07-14 02:17] VITALS: BP 141/85
--- NOTE | 2024-07-14 05:05 | NUR ---
SHIFT SUMMARY PT A&O TO PERSON ONLY. INCREASINGLY DIFFICULT TO REORIENT PT NIGHT WENT ON. PT VERY IMPULSIVE AND VERY WEAK. UP TO BSC WITH 1-2 ASSIST AND NEEDS MUCH CUING FOR SAFETY. BED ALARM ON. SLEPT SHORT PERIODS ONLY. BED IN LOWEST POSITION, CALL LIGHT WITHIN REACH, SIDE RAILS UP X3.
[2024-07-14] MEDS ORDERED: Levothyroxine Sodium 0.025 MG Tab PO SCH (06:00)
[2024-07-14 07:36] VITALS: BP 112/65
[2024-07-14] MEDS ORDERED: Docusate Sodium 100 MG Cap PO ONE (10:25)
[2024-07-14] MEDS ORDERED: Sennosides 8.6 MG Tab PO ONE (10:25)
[2024-07-14] MEDS ORDERED: Polyethylene Glycol 3350 17 gm PO ONE (10:25)
[2024-07-14 11:12] LABS: Albumin, Blood 3.2 g/dL (3.4-5.0); Albumin/Globulin Ratio 0.8 (0.8-1.8); Bun/Creatinine Ratio 17.8 (12.0-20.0); Calcium, Blood 8.8 mg/dL (8.5-10.1); Creatinine, Blood 1.07 mg/dL (0.40-1.00); Globulin, Blood 3.8 g/dL (2.2-4.0); Potassium, Blood 3.4 mmol/L (3.5-5.5)
[2024-07-14 15:35] VITALS: BP 114/68
[2024-07-14] MEDS ORDERED: FentaNYL Citrate 50 MCG/ML 2 ML Injection IV PRN (15:35)
--- NOTE | 2024-07-14 16:52 | NUR ---
SUMMARY PT IS VERY POLITE, CONFUSED, FORGETS LIMITATIONS. BED ALARM IS ON, WITH CALL LIGHT IN REACH. 1-2 PERSON ASSIST WITH FWW TO BATHROOM. PT IS COVERED IN BRUISES. PT SPOUSE AT BEDSIDE, APPEARS TO BE VERY UNSTEADY ON FEET WELL. THERE IS CONCERN FOR PT SAFETY AT HOME. PLAN TO DISCHARGE TO REHAB FACILITY. PT HAS POOR APPETITE, DIETITIAN CONSULTED TODAY. LARGE BM THIS MORNING AFTER REPORTS OF NO BM FOR 4 DAYS. PT DENIES CHEST PAIN AND PRESSURE.
[2024-07-14 21:46] VITALS: BP 110/68
[2024-07-15 03:41] VITALS: BP 120/70
--- NOTE | 2024-07-15 05:23 | NUR ---
NOC SUMMARY- PT HAS RESTED QUIETLY FOR MOST OF SHIFT. PT REMAINS CONFUSED AND IMPULSIVE AT TIMES. PT IS ABLE TO AMBULATE WITH FWW AND GB. PT DRINKING AND EATING. PT CURRENTLY SLEEPING IN NO DISTRESS. CALL LIGHT IN REACH ND BED ALARM ON.
[2024-07-15 06:04] LABS: BASOPHILS ABSOLUTE AUTO 0.02 K/mm3 (0.00-0.23); BASOPHILS PERCENT AUTO 0 % (0-2); EOSINOPHILS ABSOLUTE AUTO 0.01 K/mm3 (0.00-0.68); EOSINOPHILS PERCENT AUTO 0 % (0-6); Hematocrit 35.9 % (33.0-51.0); Hemoglobin 11.8 g/dL (11.5-16.0); IMMATURE GRAN ABSOLUTE AUTO 0.02 K/mm3 (0.00-0.10); IMMATURE GRAN PERCENT AUTO 0 % (0-1); LYMPHOCYTES ABSOLUTE AUTO 0.53 K/mm3 (0.84-5.20); LYMPHOCYTES PERCENT AUTO 9 % (21-46); MONOCYTES ABSOLUTE AUTO 0.41 K/mm3 (0.16-1.47); MONOCYTES PERCENT AUTO 7 % (4-13); Mean Corpuscular HGB 33.2 pg (26.0-34.0); Mean Corpuscular HGB Conc 32.9 g/dL (31.5-36.5); Mean Corpuscular Volume 101 fL (80-100); Mean Platelet Volume 11.1 fL (9.1-12.4); NEUTROPHILS ABSOLUTE AUTO 4.72 K/mm3 (1.96-9.15); NEUTROPHILS PERCENT AUTO 83 % (41-73); Platelet Count 56 K/mm3 (150-400); RDW Coefficient Variation 12.9 % (11.7-14.2); RDW Standard Deviation 48.6 fL (35.1-46.3); Red Blood Cell Count 3.55 M/mm3 (3.80-5.20); White Blood Cell Count 5.71 K/mm3 (4.00-11.30)
[2024-07-15 06:43] LABS: Bun/Creatinine Ratio 24.1 (12.0-20.0); Calcium, Blood 8.3 mg/dL (8.5-10.1); Creatinine, Blood 0.99 mg/dL (0.40-1.00); Potassium, Blood 3.6 mmol/L (3.5-5.5)
[2024-07-15 07:30] VITALS: BP 124/68
[2024-07-15] MEDS ORDERED: Potassium Chloride 20 MEQ TabCR PO ONE (09:00)
[2024-07-15 14:46] VITALS: BP 101/66
[2024-07-15] MEDS ORDERED: Enoxaparin 40 MG/0.4 ML SYR SC SCH (16:00)
--- NOTE | 2024-07-15 18:38 | NUR ---
report received, verified pt did well today and was anxious to go home but suggested one more night which pt was agreeable too. is at bedside. PT/OT in with pt for therapy and cognitive eval, pt has moments of confusion but over all has been recommeded to go home with home health. pt did well getting up to chair and feeding self, spent most of day 0930 to 1630 in chair, so far has been able to make needs known
[2024-07-15 20:03] VITALS: BP 107/56
[2024-07-16 02:27] VITALS: BP 114/54
--- NOTE | 2024-07-16 04:15 | NUR ---
Rn shift summary: Patient was very anxious at the beginning of the shift. Her had gone home but had not called her to say he got home safe and he was not anwering his phone. Patient stuggles with the phone, getting it turned on and off. A note was written to give her simple instructions. Patient much more calm when she finally reached him. Pt is alert and oriented x2-3, but repeats the same things over and over. She is forgetful. Pt has walked to the BR with walker and SBA. She does fairly well. Once she is up she is steady on her feet. Pt has been continent. Pt did rest well for about 3.5 hours from 0030 to 0400. Pt hopes to dischage home today. Call light in reach, bed alarm is on.
[2024-07-16 07:46] VITALS: BP 117/69
[2024-07-16] MEDS ORDERED: Aspirin 81 MG TabEC PO SCH (09:00)
[2024-07-16] MEDS ORDERED: ACET325 PO (13:12)
[2024-07-16] MEDS ORDERED: Aspir 8181 MG PO (13:12)
--- NOTE | 2024-07-16 13:45 | NUR ---
DISCUSSED DISCHARGE INSTRUCTIONS WITH PT AND PT'S SPOUSE AND PROVIDED A PRINTED COPY. STRONGLY ENCOURAGED PT'S SPOUSE TO REACH OUT TO FAMILY FOR SUPPORT. HE STATED [place]NA[place] TO [place]IST, BUT THAT THEY HAVE FOUR NIECES/NEPHEWS WHO [place] AND HAVE OFFERRED ASSISTANCE ON MULTIPLE OCCASSIONS. PT'S SPOUSE STATED THAT HE WOULD REACH OUT TO THEM WELL TO THE [employer] AND THE CAREGIVER LIST (PROVIDED BY EMOTIONALLY IMPAIRED TEACHER) AND ASK FOR ASSISTANCE. ENCOURAGED PT'S SPOUSE THAT EVERYONE NEEDS HELP CARING FOR A LOVED ONE. DISCUSSED ALLOWING HOME HEALTH, FAMILY, AND CAREGIVERS TO PROVIDE ASSISTANCE WITH PT WHO VERBALIZED THAT SHE WOULD BE COMPLIANT WITH CARE AND ASSISTANCE. ALL PERSONAL BELONGINGS SENT HOME WITH PT AND SPOUSE. DISCUSSED WITH PT'S SPOUSE THE OPTION OF PT LIVING IN A FACILITY AND PT'S SPOUSE FLATLY DECLINED THAT OPTIN. IV REMOVED. PT'S SPOUSE ASSISTED HER TO CHANGE CLOTHES AND PROVIDED TRANSPORTATION HOME.
== END 2024-07-16 14:36 | disposition home health service (06) ==
LOC: ER 19:23 → MEDS 23:46 → ERHOLD 23:46 → MEDS 07-13 00:57
PROVIDERS: Internal Medicine; Student in an Organized Health Care Education/Training Program; ADMIT Internal Medicine
DX: G93.41 Metabolic encephalopathy (principal); D69.6 Thrombocytopenia, unspecified; N18.30 Chronic kidney disease, stage 3 unspecified; I50.22 Chronic systolic (congestive) heart failure; I36.1 Nonrheumatic tricuspid (valve) insufficiency; I48.91 Unspecified atrial fibrillation; E03.9 Hypothyroidism, unspecified; W19.XXXA Unspecified fall, initial encounter; G31.84 Mild cognitive impairment of uncertain or unknown etiology; Z79.01 Long term (current) use of anticoagulants; Z79.890 Hormone replacement therapy; Z79.899 Other long term (current) drug therapy; Z95.2 Presence of prosthetic heart valve; Z88.0 Allergy status to penicillin; Z91.038 Other insect allergy status; Z88.8 Allergy status to other drugs, medicaments and biological substances; Z90.710 Acquired absence of both cervix and uterus
CPT/HCPCS: 36415; 51701; 70450; 71045; 72170; 80048; 80053; 80320; 81001; 83880; 84439; 84443; 85025; 93005; 93010; 97110; 97110-CQ; 97116; 97116-CQ; 97129; 97161; 97165; 97530; 97535; 99285-25; A9270; G0378; J1650; J7030

== ENCOUNTER → 2024-08-01 | Outpatient (CLI) | payer MEDICARE, OTHER ==
[~2024-08-01] MED LIST changes: +Aspir 8181 MG PO; -Enoxaparin 30 MG/0.3 ML SYR SC SCH
== END | disposition home or self-care (01) ==
LOC: LAB SHORT 17:00 → LAB 17:00
DX: R35.0 Frequency of micturition (principal)
CPT/HCPCS: 87086

== ENCOUNTER 2024-08-22 11:13 | Emergency (ER) | payer MEDICARE, OTHER ==
[~2024-08-22] VITALS: Ht 170.2 cm; Wt 63.5 kg
[2024-08-22 11:20] VITALS: BP 133/80
[2024-08-22] MEDS ORDERED: [UNRECOGNIZED DRUG - OTHER] TOP (12:58)
[2024-08-22] MEDS ORDERED: LIDO700A20 TOP (12:58)
== END 2024-08-22 13:34 | disposition home or self-care (01) ==
LOC: ER 11:13
DX: M51.360 Other intervertebral disc degeneration, lumbar region with discogenic back pain only (principal); M47.816 Spondylosis without myelopathy or radiculopathy, lumbar region; Z88.0 Allergy status to penicillin; Z91.030 Bee allergy status; Z79.899 Other long term (current) drug therapy; Z79.82 Long term (current) use of aspirin; I48.91 Unspecified atrial fibrillation; I27.20 Pulmonary hypertension, unspecified; N18.30 Chronic kidney disease, stage 3 unspecified
CPT/HCPCS: 72100; 99283-25

== ENCOUNTER 2024-09-08 02:40 | Emergency (ER) | payer MEDICARE, OTHER ==
[~2024-09-08] VITALS: Ht 167.6 cm; Wt 45.4 kg
[~2024-09-08 02:40] MED LIST changes: +LIDO700A20 TOP; +[UNRECOGNIZED DRUG - OTHER] TOP
[2024-09-08] MEDS ORDERED: HYDROcodone 5-APAP 325 TAB PO ONE (03:00)
[2024-09-08] MEDS ORDERED: Norco 5-325 Ta1 EACH PO (04:47)
[2024-09-08 08:33] VITALS: BP 116/61
== END 2024-09-08 10:38 | disposition home or self-care (01) ==
LOC: ER 02:40
DX: M54.2 Cervicalgia (principal); G89.29 Other chronic pain; I50.20 Unspecified systolic (congestive) heart failure; N18.30 Chronic kidney disease, stage 3 unspecified; I48.91 Unspecified atrial fibrillation; E03.9 Hypothyroidism, unspecified; Z88.0 Allergy status to penicillin; Z88.8 Allergy status to other drugs, medicaments and biological substances; Z91.030 Bee allergy status; Z79.82 Long term (current) use of aspirin; Z79.890 Hormone replacement therapy; Z79.899 Other long term (current) drug therapy
CPT/HCPCS: 72125; 99284-25; A9270